=== PATIENT | male | born 1995 | race Caucasian/White ===

== ENCOUNTER 2017-08-01 12:29 | Inpatient (IN) | payer OTHER ==
[~2017-08-01] VITALS: Ht 182.9 cm; Wt 80.0 kg
[2017-08-01] MEDS ORDERED: POLYETHYLENE (MIRALAX) 17 GM PACK PO PRN (13:15)
[2017-08-01] MEDS ORDERED: ONDANSETRON INJ 2 MG/ML 2 ML VIAL IV PRN (13:15)
[2017-08-01] MEDS ORDERED: CEFTRIAXONE SOD INJ 1 GM in DEXTROSE 5% ADD-VANTAGE 50ML 50 ML IV SCH (13:15)
[2017-08-01] MEDS ORDERED: ACETAMINOPHEN 325 MG TAB PO PRN (13:15)
[2017-08-01] MEDS ORDERED: ALBUT/IPRATROP 3MG/0.5MG NEB 3 ML VIAL INH PRN (13:15)
[2017-08-01] MEDS ORDERED: ALUMINUM/MAGNESIUM/SIMETH (MAALOX MAX) 30 ML UDC PO PRN (13:15)
[2017-08-01] MEDS ORDERED: MAGNESIUM HYDROXIDE SUSP 30 ML UDC PO PRN (13:15)
[2017-08-01 15:12] VITALS: BP 146/95; PULSE 102; TEMP 37.2; O2SAT 92
[2017-08-01] MEDS ORDERED: PATIENT'S ALLERGY INFO NEEDS ENTERED SCH (15:30)
--- NOTE | 2017-08-01 15:44 | DIAGNOSTIC IMAGING REPORT ---
SINGLE VIEW CHEST CLINICAL HISTORY: Hypoxia. FINDINGS: An AP, portable, upright chest radiograph is compared to study dated 08/01/2017. Correlation is made with chest CT dated 08/01/2017. The examination is significantly degraded by portable technique and patient rotation. The cardiomediastinal silhouette is unremarkable. There is minimal patchy airspace opacity at the right lung base. No large pleural effusion or pneumothorax is seen. The bony thorax is grossly intact. IMPRESSION: There are minimal patchy airspace opacities at the right lung base. Groundglass change was seen at this site by CT. Correlate clinically for evidence of a mild infectious/inflammatory pneumonitis.. Electronically signed by: Augustin Pena M.D. 08/01/2017 3:43 PM Dictated Date/Time: 08/01/2017 3:41 PM
[2017-08-01 15:46] VITALS: Ht 182.9 cm; Wt 80.0 kg
[2017-08-01 16:00] LABS: COMPLETE YES; HEMATOCRIT 48.7 % (42-52); IG% 0.3 %; LYMPH ABS # 1.79 K/uL (1.2-3.4); MEAN CELL VOLUME 88.4 fL (80-100); MEAN CORPUSCULAR HEMOGLOBIN 31.2 pg (25-34); MEAN CORPUSCULAR HGB CONC 35.3 g/dl (32-36); MEAN PLATELET VOLUME 9.5 fL (7.4-10.4); MONO % 1.9 %; NEUT % 85.8 %; PLATELET COUNT 327 K/uL (130-400); RED BLOOD COUNT 5.51 M/uL (4.7-6.1); WHITE BLOOD COUNT 14.91 K/uL (4.8-10.8)
[2017-08-01] MEDS ORDERED: ALBUT/IPRATROP 3MG/0.5MG NEB 3 ML VIAL INH SCH (16:00)
[2017-08-01 16:02] LABS: ARTERIAL BLD GAS O2 SATURATION 85.5 % (90-95); ARTERIAL BLOOD GAS BASE EXCESS 0.4 mEq/L (-9-1.8); ARTERIAL BLOOD GAS HCO3 24 mmol/L (19-24); ARTERIAL BLOOD GAS PO2 52 mm/Hg (80-95); ARTERIAL BLOOD GAS pH 7.45 (7.35-7.45)
[2017-08-01 16:05] LABS: ALLEN TEST POS (POS); O2 ADMINISTRATION 15 L
--- NOTE | 2017-08-01 16:10 | HISTORY & PHYSICAL EXAMINATION ---
DATE OF ADMISSION: 08/01/2017 REASON FOR ADMISSION: This is a transfer for acute hypoxic respiratory failure. HISTORY OF PRESENT ILLNESS: Mr. Garcia is a 22-year-old male who has a relatively sparse past medical history only suffering from intermittent asthma. The patient states 1 week prior to presentation at [facility], he felt his asthma was worse by feeling he was short of breath, he had a cough productive of clear mucus, he had no fevers or chills. He sought care with his physician and was given prescription for nebulizers and prednisone 60 mg, he took these throughout the week, had no improvement, presented to [place] on the , was admitted to their facility, kept until today when his oxygen requirement escalated overnight. Reportedly, a CT scan as an outpatient there shows multiple ground-glass opacities, negative for pulmonary embolism, negative for aortic dissection, nonspecific in nature. The patient otherwise had a fairly unremarkable evaluation at [place], and he was transferred to our facility for pulmonary expertise. Currently, he is resting in the hospital bed. He does not appear to be in distress, although he is hypoxic with any attempted tapering his oxygen delivery. He does also become hypoxic with speaking or moving about his bed. PAST MEDICAL HISTORY: Only for the asthma. ALLERGIES: None. SOCIAL HISTORY: He does not smoke or drink. 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 FAMILY HISTORY: Positive for diabetes in his mother. No history of lung disease. No ill person exposures. No travel. The patient states he has had his flu shot. MEDICATIONS: As listed above. REVIEW OF SYSTEMS: Ten systems were reviewed and are negative unless listed above. These include no sore throat, earache, diarrhea, change in urinary habit, changes in skin, rashes, etc. PHYSICAL EXAMINATION: VITAL SIGNS: On presentation from [place], he had temperature of 36.6, respirations 20, BP 140/60, O2 sat was 90. Currently he is febrile, his heart rate is around 100, his respiration rate is 20, his sats are 80-93 depending on his level of activity. HEENT: PERRL, EOMI. Mucous membranes are moist. His oropharynx is mildly erythematous without exudates. NECK: Without lymphadenopathy. Trachea is midline. HEART: Tachycardic, regular without murmurs. LUNGS: He actually has good air. He has fair air movement in all lung hernandez. Only scant expiratory wheezes and coarse breath sounds. No focal air loss. ABDOMEN: With normoactive bowel sounds, soft, nontender, nondistended. No organomegaly. No bruits. EXTREMITIES: Without cyanosis, clubbing or edema. He has good peripheral pulses in radius and dorsalis pedis. NEUROLOGIC: He is slow to answer questions and answers in 1-word answers, but reportedly from a staff member who knows him this is his usual state. He has no focal loss of neurological function and cranial nerves II-XII are intact. LABORATORY DATA: From [facility] he has a white count of 14.9, H&H 18 and 50, platelet count 345, BUN and creatinine 14 and 1.16. Currently pending studies here include ABG, ESR, SHEILA level, 24-hour calcium, mycoplasma, legionella, and flu. Pulmonary consultation is involved. I already spoke in person with Dr. Nelson. I reviewed the chest x-ray which was done at the bedside which shows no focal infiltrates except perhaps maybe scant at the right base. ASSESSMENT: A 22-year-old male with acute respiratory failure with hypoxia with a history of asthma. PLAN: We will treat patient for his asthma with DuoNeb inhalers and intravenous Solu-Medrol. For possible infectious etiologies or atypical pneumonia, patient was given ceftriaxone and azithromycin at [facility], it will be changed to Levaquin 750 once a day here. We will check an echocardiogram for evaluation of possible septal defects or shunt pathology. We will check influenza titer. DVT prevention will be based upon enoxaparin.
[2017-08-01 16:23] LABS: CALCIUM 9.1 mg/dl (8.5-10.1); CREATININE 0.95 mg/dl (0.60-1.40); POTASSIUM 3.9 mmol/L (3.5-5.1)
[2017-08-01 16:31] LABS: ALB/GLOB RATIO 1.1 (0.9-2)
[2017-08-01] MEDS: METHYLPREDNISOLONE IV 40 MG in SYRINGE 0 ML IV SCH (16:31)
[2017-08-01] MEDS: LEVOFLOXACIN / D5W 750 MG in PREMIXED IN D5W 150 ML IV SCH (16:32)
[2017-08-01 16:40] LABS: INR 1.2 (0.9-1.1); PROTHROMBIN TIME (PATIENT) 12.9 SECONDS (9.0-12.0)
[2017-08-01 19:14] VITALS: PULSE 105; O2SAT 92
[2017-08-01 20:04] VITALS: BP 141/82; PULSE 100; TEMP 37.2; O2SAT 93
[2017-08-01] MEDS ORDERED: LEVALBUTEROL 1.25MG/0.5ML NEB INH PRN (21:15)
--- NOTE | 2017-08-01 21:15 | Pulmonary Consultation ---
History General Date of Service: Aug 01, 2017. Stated Complaint: Acute Respiratory Failure With Hypoxia HPI The patient is a 22 year old male who presents to [facility] with complaints of Acute Respiratory Failure With Hypoxia. The patient's primary care provider is Angela Howard M.D.. 22-year-old male admitted for progressive shortness of breath/asthma attack. Patient is noted a 7-10 day progression of shortness of Breath with associated cough with clear mucus but denied fever or chills. He went to his PCP and was prescribed nebulizers as well as prednisone 60 milligrams which she used had no notable improvement. [facility] was admitted for progressive shortness of breath until he became more hypoxic and was transferred secondary to refractory hypoxemia. A [facility] there is a CT angiogram performed per the records noting multiple ground-glass opacifications and negative for signs of pulmonary embolism. The patient was notably tachypneic during our conversation, required high-flow oxygen support and still desaturated into the low 90s. He was also mildly confused and had difficulty recalling relatively simple fax a was able answer person, place an appropriate time references. He denied previous history of asthma diagnosis prior to the last 2 weeks when he was initiated on nebulizers as well as prednisone. He also denies that he received any benefit from this intervention. I should note the patient also denied: Sick contacts, travel, pleurisy, night sweats, rigors, chills, unintentional weight loss, recent moves , initiating new job, no new pets or productive cough. 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 I should note that the patient describes atypical chest pain more musculoskeletal in nature which appears to be across his right and left anterior chest wall. Serum studies: WBC: 15.9 (eosinophil %: 0) Platelet count: 327 AB.45/35/52/24 on 15 liters (AA gradient: 587) Total bilirubin: 1.4 Chest x-ray 08/01/2017: Right lower lobe infiltrate Historian: patient, EMS Review of Systems Constitutional: reports: weakness Eyes: reports: no symptoms ENT: reports: no symptoms Cardiovascular: reports: no symptoms Respiratory: reports: as stated in HPI Gastrointestinal: reports: no symptoms Genitourinary - Male: reports: no symptoms Musculoskeletal: reports: as stated in HPI Integumentary: reports: no symptoms Neurologic: reports: no symptoms Psychiatric: reports: no symptoms Endocrine: no symptoms Hematologic / Lymphatic: no symptoms Allergic / Immunologic: no symptoms Past Medical History Past Medical History: asthma Past Surgical History: no surgical history Family History Parent: Diabetes Social History Tobacco: Denied a history of tobacco use Alcohol: Denied history use or abuse Occupation: [place] : Single Drugs: No history of drug use/denies history Hx Tobacco Use In Past Year?: No (second hand exposure) Smoking Status: Never Smoker Allergies Coded Allergies: No Known Allergies (Unverified , 08/01/17) Physical Physical Exam Vital Signs: Date Time Temp Pulse Resp B/P (MAP) Pulse Ox O2 Delivery O2 Flow Rate FiO2 08/01/17 20:04 37.2 100 20 141/82 (101) 93 High Flow Oxygen 08/01/17 19:14 105 16 92 Mask 15.0 08/01/17 15:12 37.2 102 26 146/95 92 Mask 15.0 General Appearance: uncomfortable, mild distress Head: NORMOCEPHALIC, ATRAUMATIC Eyes: PERRLA, NO DISCHARGE, EOMI, SCLERAE NORMAL, other ENT: NORMAL EAR EXAM, NORMAL NASAL EXAM, NORMAL MOUTH EXAM, NORMAL THROAT EXAM , NORMAL DENTAL EXAM, NORMAL SINUS EXAM, other (Dry mucous membranes) Neck: NORMAL RANGE OF MOTION, NO TENDERNESS, TRACHEA MIDLINE, NO STRIDOR Respiratory: other (Decreased breath sounds bilaterally with inspiratory and expiratory wheezing/ peak flow meter 170) Cardiovasular: REGULAR RATE/RHYTHM, NORMAL S1S2, NO M/G/R, NO MURMUR, NO GALLOP Abdomen: NON TENDER, NORMAL BOWEL SOUNDS, NO REBOUND, NO MASSES, NO GUARDING, NO ORGANOMEGALY Genitourinary - Male: EXTERNAL GENITALIA NORMAL Back: NORMAL INSPECTION, NO MIDLINE TENDERNESS, NO CVA TENDERNESS, NO PARAVERTEBRAL TTP Upper Extremities: NO EDEMA, NO DEFORMITY, NORMAL ROM Lower Extremities: NO EDEMA, NO DEFORMITY, NORMAL ROM, other (Decreased temperature via palpation on his right foot greater than left foot but proper cap refill and proper pedal pulses noted) Pulses: carotid (R) (2+), carotid (L) (2+), dorsalis pedis (R) (2+), dorsalis pedis (L) (2+), posterior tibial (R), posterior tibial (L) (2+) Neuro: NORMAL MOTOR EXAM, lethargic Reflexes: biceps (R) (2+), bicpes (L) (2+), achilles (R) (2+), achilles (L) (2+ ) Babinski Testing: right (downgoing), left (downgoing) Psychiatric: flat affect Diagnostics Labs Results Past 24 Hours Test 08/01/17 15:09 08/01/17 15:23 08/01/17 15:27 08/01/17 15:45 Range/Units White Blood Count 14.91 4.8-10.8 K/uL Red Blood Count 5.51 4.7-6.1 M/uL Hemoglobin 17.2 14.0-18.0 g/dL Hematocrit 48.7 42-52 % Mean Corpuscular Volume 88.4 80-100 fL Mean Corpuscular Hemoglobin 31.2 25-34 pg Mean Corpuscular Hemoglobin Concent 35.3 32-36 g/dl Platelet Count 327 130-400 K/uL Mean Platelet Volume 9.5 7.4-10.4 fL Neutrophils (%) (Auto) 85.8 % Lymphocytes (%) (Auto) 12.0 % Monocytes (%) (Auto) 1.9 % Eosinophils (%) (Auto) 0.0 % Basophils (%) (Auto) 0.0 % Neutrophils # (Auto) 12.79 1.4-6.5 K/uL Lymphocytes # (Auto) 1.79 1.2-3.4 K/uL Monocytes # (Auto) 0.29 0.11-0.59 K/uL Eosinophils # (Auto) 0.00 0-0.5 K/uL Basophils # (Auto) 0.00 0-0.2 K/uL RDW Standard Deviation 43.1 36.4-46.3 fL RDW Coefficient of Variation 13.3 11.5-14.5 % Immature Granulocyte % (Auto) 0.3 % Immature Granulocyte # (Auto) 0.04 0.00-0.02 K/uL Erythrocyte Sedimentation Rate 9 0-14 mm/hr Prothrombin Time 12.9 9.0-12.0 SECONDS Prothromb Time International Ratio 1.2 0.9-1.1 Arterial Blood pH 7.45 7.35-7.45 Arterial Blood Partial Pressure CO2 35 35-46 mmHg Arterial Blood Partial Pressure O2 52 80-95 mm/Hg Arterial Blood HCO3 24 19-24 mmol/L Arterial Blood Oxygen Saturation 85.5 90-95 % Arterial Blood Base Excess 0.4 -9-1.8 mEq/L Arterial Blood Gas Delivery 15 L Chandrakant Test POS POS Sodium Level 140 136-145 mmol/L Potassium Level 3.9 3.5-5.1 mmol/L Chloride Level 107 98-107 mmol/L Carbon Dioxide Level 22 21-32 mmol/L Anion Gap 11.0 3-11 mmol/L Blood Urea Nitrogen 14 7-18 mg/dl Creatinine 0.95 0.60-1.40 mg/dl Est Creatinine Clear Calc Drug Dose 136.2 ml/min Estimated GFR () 133.0 Estimated GFR (Non- 114.8 BUN/Creatinine Ratio 15.0 10-20 Random Glucose 132 70-99 mg/dl Calcium Level 9.1 8.5-10.1 mg/dl Total Bilirubin 1.4 0.2-1 mg/dl Aspartate Amino Transf (AST/SGOT) 12 15-37 U/L Alanine Aminotransferase (ALT/SGPT) 28 12-78 U/L Alkaline Phosphatase 86 45-117 U/L Total Protein 8.0 6.4-8.2 gm/dl Albumin 4.2 3.4-5.0 gm/dl Globulin 3.8 2.5-4.0 gm/dl Albumin/Globulin Ratio 1.1 0.9-2 Diagnostic Radiology Chest x-ray 08/01/2017: Right lower lobe infiltrate Impression Assessment and Plan 22-year-old male with notable shortness of breath/hypoxemia: 1. Hypoxemia: Patient is notably hypoxic currently requiring 15 liters to maintain saturations in the mid to low 50s with an Aa gradient of 587. At this time there is no definitive etiology for his hypoxemia but this is consistent with an asthma exacerbation at this time. As the patient is notably hypoxic will move him to a high-flow oxygen system maintaining his saturations between 93 and 95%. Will also switch his nebulizers to Xopenex/ipratropium q.4 hours and Q 2 p.r.n. basis. Agree with continuing his current steroid dosing. Also spoke to the patient's primary/hospitalist Dr. Nickerson and agree with initiating/switching his antibiotics to Levaquin 750 mg daily at this time for good Gram-positive and atypical coverage which we would be most consistent with community-acquired infections. As the patient is notably hypoxic which can be secondary to severe asthma exacerbation will obtain a echocardiogram/bubble study for further evaluation to rule out any possible shunt physiology. I will also give the patient 2 milligrams of intravenous magnesium infused over 20 minutes window for possible bronchodilator affect. 2. Infectious disease: As the patient is having a severe asthma exacerbation switching the patient to Levaquin is very reasonable and did discuss with Dr. Nickerson sending off for mycoplasma, Legionella, sputum and influenza evaluation. At this time the patient is mildly confused are lethargic but does not have a history suggestive of influenza will so will hold off on Tamiflu at this time. Will also be sending off for procalcitonin level at this time. 3. Abnormal chest x-ray: The patient does have a right middle lobe infiltration but is he is notably hypoxic at this time requiring high-flow oxygen will evaluate this further in the future with possible repeat chest x- ray versus high-resolution CT scan.
[2017-08-01] MEDS: MAGNESIUM SULFATE 1GM / D5W 1 GM in PREMIXED IN D5W 100 ML IV SCH ×2 (21:36→22:38)
[2017-08-01 23:26] VITALS: PULSE 109; O2SAT 89
[2017-08-01 23:29] VITALS: BP 133/78; PULSE 98; TEMP 37.1; O2SAT 95
[2017-08-02] VITALS (19 sets, daily range): BP systolic 126–133; BP diastolic 62–73; PULSE 66–108; TEMP 36.3–37.2; O2SAT 90–95
[2017-08-02] MEDS ORDERED: LEVALBUTEROL/IPRATROPIUM NEB INH SCH
[2017-08-02] MEDS: METHYLPREDNISOLONE IV 40 MG in SYRINGE 0 ML IV SCH ×3 (01:15→15:54)
[2017-08-02] MEDS: IPRATROPIUM BROMIDE NEB SOLN 0.02% 2.5 ML VIAL INH SCH ×7 (03:31→22:59)
[2017-08-02] MEDS: LEVALBUTEROL 1.25MG/0.5ML NEB INH SCH ×7 (03:31→22:59)
[2017-08-02 07:46] LABS: INFLUENZA A PCR Neg for Influ A (NEG); INFLUENZA B PCR Neg for Influ B (NEG)
[2017-08-02] MEDS: ENOXAPARIN 40 MG/0.4 ML SYR SQ SCH (07:56)
[2017-08-02] MEDS ORDERED: AZITHROMYCIN IV 500 MG in DEXTROSE 5% 250ML 250 ML IV SCH (09:00)
--- NOTE | 2017-08-02 10:16 | Hospitalist Progress Note ---
Hospitalist Progress Note Date of Service Aug 02, 2017. Subjective Pt evaluation today including: conversation w/ patient, physical exam, chart review, lab review, conversation w/ store consultant, review of inpatient medication list Pain: None reported PO Intake: Adequate with no dysphagia This is a 22 yo male that was admitted yesterday for profound hypoxia. He was initially seen at [facility] and transferred to [facility]. Dr. Nelson from the pulmonology service saw him yesterday and will continue to follow per discussion with Dixie Fan PA-C. He continues with SOB and has not been out of bed. He has no chest pain or tightness. He has no pleuritic chest pain. He has a minimal cough and states that he has no sputum production. He has no hemoptysis. He slept "ok". 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 He denies ever seeing a metallurgical engineer in the past and infrequently sees a family doctor. He has no other acute complaints Medications Current Inpatient Medications Medications (Trade) Dose Ordered Sig/Jodee Route Start Time Stop Time Status Last Admin Dose Admin Acetaminophen (Tylenol Tab) 650 mg Q4H PRN PO 08/01/17 13:15 08/31/17 13:14 Al Hydrox/Mg Hydrox/Simethicone (Maalox Max Susp) 15 ml Q4H PRN PO 08/01/17 13:15 08/31/17 13:14 Magnesium Hydroxide (Milk Of Magnesia Susp) 30 ml Q12H PRN PO 08/01/17 13:15 08/31/17 13:14 Ondansetron HCl (Zofran Inj) 4 mg Q6H PRN IV 08/01/17 13:15 08/31/17 13:14 Polyethylene (Miralax Powder Packet) 17 gm DAILY PRN PO 08/01/17 13:15 08/31/17 13:14 Methylprednisolone Sodium Succinate 40 mg/Syringe 0.64 ml @ 1.5 mls/min Q8H IV 08/01/17 16:00 08/31/17 15:59 08/02/17 07:56 1.5 MLS/MIN Levofloxacin 750 mg/Prmx 150 ml @ 100 mls/hr Q24H IV 08/01/17 17:00 08/08/17 16:59 08/01/17 16:32 100 MLS/HR Enoxaparin Sodium (Lovenox Inj) 40 mg QAM SQ 08/02/17 09:00 09/01/17 08:59 08/02/17 07:56 40 MG Levalbuterol (Xopenex 1.25MG/ 0.5ML Neb) 1.25 mg Q2R PRN INH 08/01/17 21:15 08/31/17 21:14 Ipratropium [place] (Atrovent 0.02% 0.5MG/2.5ML Neb) 0.5 mg Q4R INH 08/02/17 00:00 09/01/17 00:00 08/02/17 07:06 0.5 MG Levalbuterol (Xopenex 1.25MG/ 0.5ML Neb) 1.25 mg Q4R INH 08/02/17 00:00 09/01/17 00:00 08/02/17 07:06 1.25 MG Objective Vital Signs Date Time Temp Pulse Resp B/P (MAP) Pulse Ox O2 Delivery O2 Flow Rate FiO2 08/02/17 07:49 37.0 66 20 133/73 (93) 93 High Flow Oxygen 50.0 80 08/02/17 07:08 74 20 94 Nasal Cannula 50.0 80 08/02/17 04:09 36.9 101 22 127/65 (85) 91 High Flow Oxygen 08/02/17 04:00 93 High Flow Oxygen 45.0 60 08/02/17 03:31 73 20 94 Nasal Cannula 45.0 65 08/02/17 00:00 93 High Flow Oxygen 45.0 60 08/01/17 23:29 37.1 98 22 133/78 (96) 95 High Flow Oxygen 45.0 60 08/01/17 23:26 109 28 89 Nasal Cannula 45.0 60 08/01/17 20:04 37.2 100 20 141/82 (101) 93 High Flow Oxygen 08/01/17 20:00 High Flow Oxygen 35.0 55 Mask 08/01/17 19:14 105 16 92 Mask 15.0 08/01/17 15:12 37.2 102 26 146/95 92 Mask 15.0 Physical Exam General Appearance: no apparent distress (However, he appears ill) Eyes: normal inspection ENT: normal ENT inspection, pharynx normal Neck: supple, no adenopathy, no JVD Respiratory/Chest: chest non-tender, no respiratory distress, no accessory muscle use, + wheezing (left upper lung) Cardiovascular: regular rate, rhythm (HR 83 at the time of my examination) Abdomen: normal bowel sounds, non tender, soft Extremities: normal inspection, no pedal edema Neurologic/Psychiatric: alert, oriented x 3 Skin: normal color, warm/dry Laboratory Results Last 24 Hours Test 08/01/17 15:45 08/01/17 21:33 08/02/17 00:00 08/02/17 08:50 White Blood Count 14.91 K/uL Red Blood Count 5.51 M/uL Hemoglobin 17.2 g/dL Hematocrit 48.7 % Mean Corpuscular Volume 88.4 fL Mean Corpuscular Hemoglobin 31.2 pg Mean Corpuscular Hemoglobin Concent 35.3 g/dl Platelet Count 327 K/uL Mean Platelet Volume 9.5 fL Neutrophils (%) (Auto) 85.8 % Lymphocytes (%) (Auto) 12.0 % Monocytes (%) (Auto) 1.9 % Eosinophils (%) (Auto) 0.0 % Basophils (%) (Auto) 0.0 % Neutrophils # (Auto) 12.79 K/uL Lymphocytes # (Auto) 1.79 K/uL Monocytes # (Auto) 0.29 K/uL Eosinophils # (Auto) 0.00 K/uL Basophils # (Auto) 0.00 K/uL RDW Standard Deviation 43.1 fL RDW Coefficient of Variation 13.3 % Immature Granulocyte % (Auto) 0.3 % Immature Granulocyte # (Auto) 0.04 K/uL Erythrocyte Sedimentation Rate 9 mm/hr Prothrombin Time 12.9 SECONDS Prothromb Time International Ratio 1.2 Arterial Blood pH 7.45 Arterial Blood Partial Pressure CO2 35 mmHg Arterial Blood Partial Pressure O2 52 mm/Hg Arterial Blood HCO3 24 mmol/L Arterial Blood Oxygen Saturation 85.5 % Arterial Blood Base Excess 0.4 mEq/L Arterial Blood Gas Delivery 15 L Chandrakant Test POS Sodium Level 140 mmol/L Potassium Level 3.9 mmol/L Chloride Level 107 mmol/L Carbon Dioxide Level 22 mmol/L Anion Gap 11.0 mmol/L Blood Urea Nitrogen 14 mg/dl Creatinine 0.95 mg/dl Est Creatinine Clear Calc Drug Dose 136.2 ml/min Estimated GFR () 133.0 Estimated GFR (Non- 114.8 BUN/Creatinine Ratio 15.0 Random Glucose 132 mg/dl Calcium Level 9.1 mg/dl Total Bilirubin 1.4 mg/dl Aspartate Amino Transf (AST/SGOT) 12 U/L Alanine Aminotransferase (ALT/SGPT) 28 U/L Alkaline Phosphatase 86 U/L Total Protein 8.0 gm/dl Albumin 4.2 gm/dl Globulin 3.8 gm/dl Albumin/Globulin Ratio 1.1 Pro-B-Type Natriuretic Peptide 133 pg/ml Procalcitonin < 0.05 ng/ml Influenza Type A (RT-PCR) Neg for Influ A Influenza Type A Antigen Neg for Influ A Influenza Type B Antigen Neg for Influ B Influenza Type B (RT-PCR) Neg for Influ B Diagnostic Results 08/01/17 15:45 Red Blood Count 5.51, Mean Corpuscular Volume 88.4, Mean Corpuscular Hemoglobin 31.2, Mean Corpuscular Hemoglobin Concent 35.3, Mean Platelet Volume 9.5, Neutrophils (%) (Auto) 85.8, Lymphocytes (%) (Auto) 12.0, Monocytes (%) (Auto) 1.9, Eosinophils (%) (Auto) 0.0, Basophils (%) (Auto) 0.0, Neutrophils # (Auto) 12.79, Lymphocytes # (Auto) 1.79, Monocytes # (Auto) 0.29, Eosinophils # (Auto) 0.00, Basophils # (Auto) 0.00 08/01/17 15:45 Test 08/01/17 15:45 08/01/17 21:33 08/02/17 00:00 08/02/17 08:50 White Blood Count 14.91 K/uL (4.8-10.8) Red Blood Count 5.51 M/uL (4.7-6.1) Hemoglobin 17.2 g/dL (14.0-18.0) Hematocrit 48.7 % (42-52) Mean Corpuscular Volume 88.4 fL (80-100) Mean Corpuscular Hemoglobin 31.2 pg (25-34) Mean Corpuscular Hemoglobin Concent 35.3 g/dl (32-36) Platelet Count 327 K/uL (130-400) Mean Platelet Volume 9.5 fL (7.4-10.4) Neutrophils (%) (Auto) 85.8 % Lymphocytes (%) (Auto) 12.0 % Monocytes (%) (Auto) 1.9 % Eosinophils (%) (Auto) 0.0 % Basophils (%) (Auto) 0.0 % Neutrophils # (Auto) 12.79 K/uL (1.4-6.5) Lymphocytes # (Auto) 1.79 K/uL (1.2-3.4) Monocytes # (Auto) 0.29 K/uL (0.11-0.59) Eosinophils # (Auto) 0.00 K/uL (0-0.5) Basophils # (Auto) 0.00 K/uL (0-0.2) RDW Standard Deviation 43.1 fL (36.4-46.3) RDW Coefficient of Variation 13.3 % (11.5-14.5) Immature Granulocyte % (Auto) 0.3 % Immature Granulocyte # (Auto) 0.04 K/uL (0.00-0.02) Erythrocyte Sedimentation Rate 9 mm/hr (0-14) Prothrombin Time 12.9 SECONDS (9.0-12.0) Prothromb Time International Ratio 1.2 (0.9-1.1) Arterial Blood pH 7.45 (7.35-7.45) Arterial Blood Partial Pressure CO2 35 mmHg (35-46) Arterial Blood Partial Pressure O2 52 mm/Hg (80-95) Arterial Blood HCO3 24 mmol/L (19-24) Arterial Blood Oxygen Saturation 85.5 % (90-95) Arterial Blood Base Excess 0.4 mEq/L (-9-1.8) Arterial Blood Gas Delivery 15 L Chandrakant Test POS (POS) Anion Gap 11.0 mmol/L (3-11) Est Creatinine Clear Calc Drug Dose 136.2 ml/min Estimated GFR () 133.0 Estimated GFR (Non- 114.8 BUN/Creatinine Ratio 15.0 (10-20) Calcium Level 9.1 mg/dl (8.5-10.1) Total Bilirubin 1.4 mg/dl (0.2-1) Aspartate Amino Transf (AST/SGOT) 12 U/L (15-37) Alanine Aminotransferase (ALT/SGPT) 28 U/L (12-78) Alkaline Phosphatase 86 U/L (45-117) Total Protein 8.0 gm/dl (6.4-8.2) Albumin 4.2 gm/dl (3.4-5.0) Globulin 3.8 gm/dl (2.5-4.0) Albumin/Globulin Ratio 1.1 (0.9-2) Pro-B-Type Natriuretic Peptide 133 pg/ml (0-450) Procalcitonin < 0.05 ng/ml (0-0.5) Influenza Type A (RT-PCR) Neg for Influ A (NEG) Influenza Type A Antigen Neg for Influ A (NEG) Influenza Type B Antigen Neg for Influ B (NEG) Influenza Type B (RT-PCR) Neg for Influ B (NEG) Assessment and Plan ACUTE HYPOXIA Reported hx of asthma with no hx of PFTs Continues on [place] O2 Continue Levofloxacin Continue bronchodilators Received IV magnesium for bronchodilation Pulmonary consulted - Appreciate Dr. Nelson's input No PE per CTA at [place] CXR here with RLL ground glass opacities consistent with reactive pneumonitis vs infiltrate Discussed with pulmonary service - they will continue to follow ASTHMA Acute hypoxia as above Continue Levofloxacin and Duo nebs Continue Methylprednisolone Will need outpatient follow up and PFTs TACHYCARDIA HR low 100s this morning Has been trending in the 70s Continue on telemetry Suspect that tachycardia is self limited to acute respiratory issues DVT PROPHYLAXIS Enoxaparin Ambulate as tolerated OOB as tolerated Please refer to Dr. Hernandez' addendum for further recommendations Continued [facility] stay due to: multiple IV medications needed Discharge planning: home
--- NOTE | 2017-08-02 12:50 | ECHOCARDIOGRAM REPORT ---
*NOTICE TO RECEIVING DEMOCRAT AGENCY This information is strictly Confidential and protected under [place] law. [place] law prohibits you from making any further disclosure of this information unless further disclosure is expressly permitted by the written consent of the person to whom it pertains or is authorized by law. A general authorization for the release of medical or other information is not sufficient for this purpose. Hospital accepts no responsibility if the information is made available to any other person, INCLUDING THE PATIENT. Interpretation Summary * Name: ESTHELA MONTIEL Study Date: 08/02/2017 06:18 AM BP: 127/65 mmHg * Patient Location: C.2E\S\E207\S\1 HR: 101 * : 1995 (M/d/yyyy) Gender: Male Height: 72 in * Age: 22 yrs Ethnicity: CA Weight: 173 lb * Ordering Physician: David Nickerson * Referring Physician: UNKNOWN * Performed By: Margot Moody RCS * * Reason For Study: Eval for ASD \T\ VSD * BSA: 2.0 m2 * Normal valves. * Hyperdynamic left ventricular systolic function. * Normal estimated central venous pressure. * Normal chamber dimensions. Procedure Details * A complete two-dimensional transthoracic echocardiogram was performed (2D, M-mode, Doppler and color flow Doppler). * A saline contrast injection was performed to assess for cardiac shunting. * The injection was performed through an intravenous line in the left arm. * The attending nurse who injected the saline contrast was Eder Rowan RN. * A total of 20 cc of agitated saline was given. Left Ventricle * The left ventricle is normal in size. * There is no ventricular septal defect visualized. * There is normal left ventricular wall thickness. * Ejection Fraction = >70 %. * The left ventricle is hyperdynamic. * No regional wall motion abnormalities noted. Right Ventricle * The right ventricle is normal in size and function. Atria * The left atrial size is normal. * Right atrial size is normal. * Injection of contrast documented no interatrial shunt. Mitral Valve * The mitral valve is normal. * There is no mitral valve stenosis. * There is no mitral regurgitation noted. Tricuspid Valve * The tricuspid valve is normal. * There is no tricuspid stenosis. * No tricuspid regurgitation. Aortic Valve * The aortic valve opens well. * The aortic valve is trileaflet. * Aortic stenosis is absent. * No aortic regurgitation is present. Pulmonic Valve * The pulmonic valve is not well visualized. * The pulmonary valve is inadequately visualized, but the Doppler data is adequate for interpretation. * There is no pulmonic valvular stenosis. * There is no pulmonic valvular regurgitation. Great Vessels * The aortic root is normal size. Pericardium/Pleural * There is no pericardial effusion. Great Vessels * Normal inferior vena cava diameter and respiratory variation suggests normal central venous pressure. MMode 2D Measurements and Calculations IVSd 0.90 cm LVIDd 3.6 cm LVIDs 1.9 cm LVPWd 0.93 cm LVPWs 0.98 cm IVS/LVPW 0.97 FS 46.3 % EDV(Teich) 54.7 ml ESV(Teich) 11.7 ml EF(Teich) 78.5 % EDV(cubed) 46.9 ml ESV(cubed) 7.3 ml EF(cubed) 84.5 % % LVPW thick 5.3 % LV mass(C)d 95.2 grams LV mass(C)dI 47.5 grams/m\S\2 SV(Teich) 42.9 ml SI(Teich) 21.4 ml/m\S\2 SV(cubed) 39.6 ml SI(cubed) 19.8 ml/m\S\2 Ao root diam 3.1 cm Ao root area 7.7 cm\S\2 ACS 1.7 cm LA dimension 3.3 cm asc Aorta Diam 2.7 cm LA/Ao 1.1 Doppler Measurements and Calculations MV E max charlie 79.3 cm/sec MV A max charlie 34.7 cm/sec MV E/A 2.3 MV P1/2t max charlie 92.5 cm/sec MV P1/2t 86.5 msec MVA(P1/2t) 2.5 cm\S\2 MV dec slope 313.2 cm/sec\S\2 MV dec time 0.30 sec Ao V2 max 109.5 cm/sec Ao max PG 4.8 mmHg Ao max PG (full) 2.4 mmHg LV V1 max PG 2.4 mmHg LV V1 max 58.6 cm/sec PA V2 max 92.9 cm/sec PA max PG 3.5 mmHg
--- NOTE | 2017-08-02 15:38 | Pulmonology Progress Note ---
Pulmonary Progress Note Date of Service Aug 02, 2017. Attending Dr. Nelson Subjective 22-year-old male notes a continuous of mild dyspnea at rest and notable dyspnea with exertion. He does state this is improving over the last 24 hours. Objective Patient able to complete full sentences but is notably tachypnea using accessory muscles still during our conversation. 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 Vital signs: Stable on high flow oxygen at 50% Respiratory: Expiratory wheezes noted globally Cardiac: S1-S2 regular rate and rhythm no murmurs rubs or gallops Abdomen: Soft nontender Extremities: No clubbing cyanosis or edema Influenza a and B antigens as well as PCR assay negative Assessment & Plan 22-year-old male admitted for severe asthma exacerbation: #1 asthma exacerbation: At this time the patient has stabilized over the last 24 hours and is doing well on high flow oxygen, IV steroids and Xopenex/ Atrovent nebulizer. At this time the patient is responding and is clinically improving over the last 24 hours. We'll continue to monitor the patient limited treatment and maintain his SaO2 is between 90-95%. #2 infectious disease: Serum studies are currently pending patient continues on Levaquin 750 mg. This is day 2. Data Medications: Current Inpatient Medications Medications (Trade) Dose Ordered Sig/Jodee Route Start Time Stop Time Status Last Admin Dose Admin Acetaminophen (Tylenol Tab) 650 mg Q4H PRN PO 08/01/17 13:15 08/31/17 13:14 Al Hydrox/Mg Hydrox/Simethicone (Maalox Max Susp) 15 ml Q4H PRN PO 08/01/17 13:15 08/31/17 13:14 Magnesium Hydroxide (Milk Of Magnesia Susp) 30 ml Q12H PRN PO 08/01/17 13:15 08/31/17 13:14 Ondansetron HCl (Zofran Inj) 4 mg Q6H PRN IV 08/01/17 13:15 08/31/17 13:14 Polyethylene (Miralax Powder Packet) 17 gm DAILY PRN PO 08/01/17 13:15 08/31/17 13:14 Methylprednisolone Sodium Succinate 40 mg/Syringe 0.64 ml @ 1.5 mls/min Q8H IV 08/01/17 16:00 08/31/17 15:59 08/02/17 07:56 1.5 MLS/MIN Levofloxacin 750 mg/Prmx 150 ml @ 100 mls/hr Q24H IV 08/01/17 17:00 08/08/17 16:59 08/01/17 16:32 100 MLS/HR Enoxaparin Sodium (Lovenox Inj) 40 mg QAM SQ 08/02/17 09:00 09/01/17 08:59 08/02/17 07:56 40 MG Levalbuterol (Xopenex 1.25MG/ 0.5ML Neb) 1.25 mg Q2R PRN INH 08/01/17 21:15 08/31/17 21:14 Ipratropium [place] (Atrovent 0.02% 0.5MG/2.5ML Neb) 0.5 mg Q4R INH 08/02/17 00:00 09/01/17 00:00 08/02/17 11:05 0.5 MG Levalbuterol (Xopenex 1.25MG/ 0.5ML Neb) 1.25 mg Q4R INH 08/02/17 00:00 09/01/17 00:00 08/02/17 11:05 1.25 MG I & O: 24-Hour Column 08/03/17 07:59 Intake Total 950 ml Output Total 210 ml Balance 740 ml Vital Signs: Date Time Temp Pulse Resp B/P (MAP) Pulse Ox O2 Delivery O2 Flow Rate FiO2 08/02/17 12:00 91 High Flow Oxygen 50.0 80 08/02/17 11:20 36.6 108 20 132/62 (85) 91 High Flow Oxygen 08/02/17 11:07 74 20 91 Nasal Cannula 50.0 55 08/02/17 11:03 93 High Flow Oxygen 50.0 80 08/02/17 07:49 37.0 66 20 133/73 (93) 93 High Flow Oxygen 50.0 80 08/02/17 07:08 74 20 94 Nasal Cannula 50.0 80 08/02/17 04:09 36.9 101 22 127/65 (85) 91 High Flow Oxygen 08/02/17 04:00 93 High Flow Oxygen 45.0 60 08/02/17 03:31 73 20 94 Nasal Cannula 45.0 65 08/02/17 00:00 93 High Flow Oxygen 45.0 60 08/01/17 23:29 37.1 98 22 133/78 (96) 95 High Flow Oxygen 45.0 60 08/01/17 23:26 109 28 89 Nasal Cannula 45.0 60 08/01/17 20:04 37.2 100 20 141/82 (101) 93 High Flow Oxygen 08/01/17 20:00 High Flow Oxygen 35.0 55 Mask 08/01/17 19:14 105 16 92 Mask 15.0 Laboratory Results: Last 24 Hours Test 08/01/17 15:45 08/01/17 21:33 08/02/17 00:00 08/02/17 08:50 White Blood Count 14.91 K/uL Red Blood Count 5.51 M/uL Hemoglobin 17.2 g/dL Hematocrit 48.7 % Mean Corpuscular Volume 88.4 fL Mean Corpuscular Hemoglobin 31.2 pg Mean Corpuscular Hemoglobin Concent 35.3 g/dl Platelet Count 327 K/uL Mean Platelet Volume 9.5 fL Neutrophils (%) (Auto) 85.8 % Lymphocytes (%) (Auto) 12.0 % Monocytes (%) (Auto) 1.9 % Eosinophils (%) (Auto) 0.0 % Basophils (%) (Auto) 0.0 % Neutrophils # (Auto) 12.79 K/uL Lymphocytes # (Auto) 1.79 K/uL Monocytes # (Auto) 0.29 K/uL Eosinophils # (Auto) 0.00 K/uL Basophils # (Auto) 0.00 K/uL RDW Standard Deviation 43.1 fL RDW Coefficient of Variation 13.3 % Immature Granulocyte % (Auto) 0.3 % Immature Granulocyte # (Auto) 0.04 K/uL Erythrocyte Sedimentation Rate 9 mm/hr Prothrombin Time 12.9 SECONDS Prothromb Time International Ratio 1.2 Arterial Blood pH 7.45 Arterial Blood Partial Pressure CO2 35 mmHg Arterial Blood Partial Pressure O2 52 mm/Hg Arterial Blood HCO3 24 mmol/L Arterial Blood Oxygen Saturation 85.5 % Arterial Blood Base Excess 0.4 mEq/L Arterial Blood Gas Delivery 15 L [place] Test POS Sodium Level 140 mmol/L Potassium Level 3.9 mmol/L Chloride Level 107 mmol/L Carbon Dioxide Level 22 mmol/L Anion Gap 11.0 mmol/L Blood Urea Nitrogen 14 mg/dl Creatinine 0.95 mg/dl Est Creatinine Clear Calc Drug Dose 136.2 ml/min Estimated GFR () 133.0 Estimated GFR (Non- 114.8 BUN/Creatinine Ratio 15.0 Random Glucose 132 mg/dl Calcium Level 9.1 mg/dl Total Bilirubin 1.4 mg/dl Aspartate Amino Transf (AST/SGOT) 12 U/L Alanine Aminotransferase (ALT/SGPT) 28 U/L Alkaline Phosphatase 86 U/L Total Protein 8.0 gm/dl Albumin 4.2 gm/dl Globulin 3.8 gm/dl Albumin/Globulin Ratio 1.1 Pro-B-Type Natriuretic Peptide 133 pg/ml Procalcitonin < 0.05 ng/ml Influenza Type A (RT-PCR) Neg for Influ A Influenza Type A Antigen Neg for Influ A Influenza Type B Antigen Neg for Influ B Influenza Type B (RT-PCR) Neg for Influ B Test 08/02/17 11:15
[2017-08-02] MEDS: LEVOFLOXACIN / D5W 750 MG in PREMIXED IN D5W 150 ML IV SCH (19:13)
[2017-08-03] VITALS (14 sets, daily range): BP systolic 125–141; BP diastolic 75–91; PULSE 60–103; TEMP 36.7–37.1; O2SAT 90–95
[2017-08-03] MEDS: METHYLPREDNISOLONE IV 40 MG in SYRINGE 0 ML IV SCH ×4 (00:09→23:38)
[2017-08-03] MEDS: IPRATROPIUM BROMIDE NEB SOLN 0.02% 2.5 ML VIAL INH SCH ×6 (03:28→23:23)
[2017-08-03] MEDS: LEVALBUTEROL 1.25MG/0.5ML NEB INH SCH ×6 (03:28→23:23)
[2017-08-03] MEDS: ENOXAPARIN 40 MG/0.4 ML SYR SQ SCH (08:53)
--- NOTE | 2017-08-03 11:00 | Pulmonology Progress Note ---
Pulmonary Progress Note Date of Service Aug 03, 2017. Attending Dr. Nelson Subjective Patient states that he is feeling slightly better. He states that his breathing is "good" this morning, and that the high flow O2 is OK. He has no other real complaints and states that his appetite is good. Meds reviewed: Atrovent, Xopenex, Levofloxacin, Methylprednisolone 40 mg Q8h Echo: hyperdynamic left ventricular systolic function, normal valves, EF >70% Labs reviewed: Procalcitonin <0.05 BNP 133 SHEILA pending Previous CTA viewed and reviewed this morning with Dr. Nelson. Note a mosaic pattern to B/L lungs with R>L. Objective VS reviewed. Patient continues on high flow O2 at a rate of 50 with FiO2 of 70 this morning. SaO2 this morning has been 91-95%. RR up to 26 over night. HR 60- 73, BP 139/77 Patient answers questions with short answers and does not make any extensive conversation. General: Patient is awake, alert, and in no acute distress. Well developed. Well-nourished. Head: Normocephalic, Atraumatic. ENT: PERRLA, No discharge, EOMI, Sclera normal Neck: Normal ROM. Trachea midline. No stridor Respiratory: High flow O2 in place. Tachypnea on exam. Inspiratory and expiratory wheezing noted on exam, especially on right. No accessory muscle use. Cardiovascular: Regular rate and rhythm. No murmur appreciate. Normal S1/S2. Abdomen: Nontender to palpation. Normal bowel sounds hear throughout. No guarding. Abdomen is soft and nontender Back: Normal inspection. Extremities: No edema, cyanosis. Neuro: Alert. CN II-XII grossly intact. Sensation and motor function grossly intact. Psych: Mood and affect are flat Assessment & Plan Severe asthma exacerbation Possible lower respiratory tract infection Patient is currently stable but still requiring high O2 supplementation. Continue O2 supplementation pending further improvement. Continue to taper O2 as tolerated. Keep SaO2 between 90-95% ideally. Patient continues to have tachypnea and wheezing. Continue nebulized Xopenex, Atrovent, and Solu-Medrol. will hopefully be able to start tapering steroids tomorrow pending further improvement. Continues to have flat affect and because of mosaic pattern on prior CTA- will check toxicology screen. Serum studies pending for infection. Will continue Levaquin pending serum studies, but likely will be able to discontinue in next 1-2 days. Will follow. Patient was seen and examined and the plan of of his agreed upon. As well as CT was reviewed from outside facility. Data Medications: Current Inpatient Medications Medications (Trade) Dose Ordered Sig/Jodee Route Start Time Stop Time Status Last Admin Dose Admin Acetaminophen (Tylenol Tab) 650 mg Q4H PRN PO 08/01/17 13:15 08/31/17 13:14 Al Hydrox/Mg Hydrox/Simethicone (Maalox Max Susp) 15 ml Q4H PRN PO 08/01/17 13:15 08/31/17 13:14 Magnesium Hydroxide (Milk Of Magnesia Susp) 30 ml Q12H PRN PO 08/01/17 13:15 08/31/17 13:14 Ondansetron HCl (Zofran Inj) 4 mg Q6H PRN IV 08/01/17 13:15 08/31/17 13:14 Polyethylene (Miralax Powder Packet) 17 gm DAILY PRN PO 08/01/17 13:15 08/31/17 13:14 Methylprednisolone Sodium Succinate 40 mg/Syringe 0.64 ml @ 1.5 mls/min Q8H IV 08/01/17 16:00 08/31/17 15:59 08/03/17 08:53 1.5 MLS/MIN Levofloxacin 750 mg/Prmx 150 ml @ 100 mls/hr Q24H IV 08/01/17 17:00 08/08/17 16:59 08/02/17 19:13 100 MLS/HR Enoxaparin Sodium (Lovenox Inj) 40 mg QAM SQ 08/02/17 09:00 09/01/17 08:59 08/02/17 07:56 40 MG Levalbuterol (Xopenex 1.25MG/ 0.5ML Neb) 1.25 mg Q2R PRN INH 08/01/17 21:15 08/31/17 21:14 Ipratropium [place] (Atrovent 0.02% 0.5MG/2.5ML Neb) 0.5 mg Q4R INH 08/02/17 00:00 09/01/17 00:00 08/03/17 07:16 0.5 MG Levalbuterol (Xopenex 1.25MG/ 0.5ML Neb) 1.25 mg Q4R INH 08/02/17 00:00 09/01/17 00:00 08/03/17 07:16 1.25 MG Vital Signs: Date Time Temp Pulse Resp B/P (MAP) Pulse Ox O2 Delivery O2 Flow Rate FiO2 08/03/17 08:36 91 High Flow Oxygen 50.0 08/03/17 07:57 36.9 73 22 139/77 (97) 94 High Flow Oxygen 08/03/17 07:16 60 16 93 Nasal Cannula 50.0 70 08/03/17 04:00 High Flow Oxygen 08/03/17 03:28 73 20 93 Nasal Cannula 50.0 70 08/03/17 03:25 37.1 72 26 137/91 (106) 95 High Flow Oxygen 08/03/17 01:12 93 High Flow Oxygen 50.0 65 08/02/17 23:59 High Flow Oxygen 08/02/17 23:25 36.3 91 22 129/67 (87) 95 High Flow Oxygen 50.0 55 08/02/17 22:59 105 22 92 Nasal Cannula 50.0 55 08/02/17 20:00 High Flow Oxygen 08/02/17 19:28 37.1 92 24 130/69 (89) 94 High Flow Oxygen 08/02/17 19:04 87 22 93 Nasal Cannula 50.0 55 08/02/17 16:17 97 19 126/71 (89) 90 High Flow Oxygen 15.0 08/02/17 16:15 91 High Flow Oxygen 50.0 80 08/02/17 15:54 92 22 91 Nasal Cannula 50.0 55 08/02/17 15:43 92 High Flow Oxygen 15.0 08/02/17 15:38 37.2 90 18 126/71 (89) 92 High Flow Oxygen 08/02/17 12:00 91 High Flow Oxygen 50.0 80 08/02/17 11:20 36.6 108 20 132/62 (85) 91 High Flow Oxygen 08/02/17 11:07 74 20 91 Nasal Cannula 50.0 55 08/02/17 11:03 93 High Flow Oxygen 50.0 80 Laboratory Results: Last 24 Hours Test 08/02/17 11:15 08/02/17 20:50 08/03/17 10:50
--- NOTE | 2017-08-03 12:06 | DIAGNOSTIC IMAGING REPORT ---
(CHEST) THORAX WITHOUT CT DOSE: 340.97 mGy.cm CLINICAL HISTORY: 22 years-old Male with Hypoxia, asthma exacerbation. Acute hypoxia TECHNIQUE: Multiaxial CT images of the chest were performed without contrast. A dose lowering technique was utilized adhering to the principles of ALARA. COMPARISON: Chest radiograph 08/01/2017, CTA chest 08/01/2017 FINDINGS: Thyroid is homogeneous. No pathologic adenopathy. Heart appears normal in size without pericardial effusion. Thoracic aorta is normal in both course and caliber. Minimal residual thymic tissue. No pleural effusion or pneumothorax. There are linear subsegmental consolidative opacities of the lung bases as well as the upper lobes compatible with atelectasis. Minimal mosaic attenuation bilaterally, notably within the upper lung zones there is a groundglass opacities are again seen. Focal groundglass opacity of the lateral segment right middle lobe has decreased from prior study 08/01/2017 seen on image 188 of series 4. There is mild bilateral bronchial wall thickening with associated secretions as seen on image 143 series 4. Secretions are also seen within the mid trachea. No lobar airspace consolidation to suggest pneumonia. No acute amount of the imaged upper abdomen. Soft tissues are unremarkable. Bones appear intact. Minimal Schmorl's nodes are seen at several levels throughout the thoracic spine. IMPRESSION: 1. Mild bilateral bilateral bronchial wall thickening with minimal airway secretions, scattered subsegmental mosaic attenuation and groundglass opacities suggests bronchial inflammatory changes with air trapping. Pattern of disease is slightly improved from comparison 08/01/2017. 2. No lobar airspace consolidation to suggest pneumonia. Electronically signed by: Jimbo Byrd M.D. 08/03/2017 12:05 PM Dictated Date/Time: 08/03/2017 11:58 AM
--- NOTE | 2017-08-03 13:47 | Progress Note ---
Subjective Date of Service: Aug 03, 2017. Subjective Pt evaluation today including: conversation w/ patient, physical exam, lab review, review of studies, conversation w/ internal audit consultant, review of inpatient medication list Pain: no pain PO Intake: adeqaute Voiding: no voiding problems patient says he feels slightly better today, breathing more comfortably, no distress reviewed results of CT chest discussed case with Dr. Nelson, continue to treat asthma Review of Systems Respiratory: + cough, + sputum, + wheezing, + shortness of breath, + dyspnea on exertion All Other Systems: Reviewed and Negative Medications Current Inpatient Medications Medications (Trade) Dose Ordered Sig/Jodee Route Start Time Stop Time Status Last Admin Dose Admin Acetaminophen (Tylenol Tab) 650 mg Q4H PRN PO 08/01/17 13:15 08/31/17 13:14 Al Hydrox/Mg Hydrox/Simethicone (Maalox Max Susp) 15 ml Q4H PRN PO 08/01/17 13:15 08/31/17 13:14 Magnesium Hydroxide (Milk Of Magnesia Susp) 30 ml Q12H PRN PO 08/01/17 13:15 08/31/17 13:14 Ondansetron HCl (Zofran Inj) 4 mg Q6H PRN IV 08/01/17 13:15 08/31/17 13:14 Polyethylene (Miralax Powder Packet) 17 gm DAILY PRN PO 08/01/17 13:15 08/31/17 13:14 Methylprednisolone Sodium Succinate 40 mg/Syringe 0.64 ml @ 1.5 mls/min Q8H IV 08/01/17 16:00 08/31/17 15:59 08/03/17 08:53 1.5 MLS/MIN Levofloxacin 750 mg/Prmx 150 ml @ 100 mls/hr Q24H IV 08/01/17 17:00 08/08/17 16:59 08/02/17 19:13 100 MLS/HR Enoxaparin Sodium (Lovenox Inj) 40 mg QAM SQ 08/02/17 09:00 09/01/17 08:59 08/02/17 07:56 40 MG Levalbuterol (Xopenex 1.25MG/ 0.5ML Neb) 1.25 mg Q2R PRN INH 08/01/17 21:15 11/15/17 21:14 Ipratropium [place] (Atrovent 0.02% 0.5MG/2.5ML Neb) 0.5 mg Q4R INH 08/02/17 00:00 09/01/17 00:00 08/03/17 11:22 0.5 MG Levalbuterol (Xopenex 1.25MG/ 0.5ML Neb) 1.25 mg Q4R INH 08/02/17 00:00 09/01/17 00:00 08/03/17 11:23 1.25 MG Objective Vital Signs Date Time Temp Pulse Resp B/P (MAP) Pulse Ox O2 Delivery O2 Flow Rate FiO2 08/03/17 11:23 69 16 90 Nasal Cannula 50.0 70 08/03/17 10:55 37.1 68 28 125/75 (92) 90 Non-Rebreather 14.0 08/03/17 08:36 91 High Flow Oxygen 50.0 08/03/17 07:57 36.9 73 22 139/77 (97) 94 High Flow Oxygen 08/03/17 07:16 60 16 93 Nasal Cannula 50.0 70 08/03/17 04:00 High Flow Oxygen 08/03/17 03:28 73 20 93 Nasal Cannula 50.0 70 08/03/17 03:25 37.1 72 26 137/91 (106) 95 High Flow Oxygen 08/03/17 01:12 93 High Flow Oxygen 50.0 65 08/02/17 23:59 High Flow Oxygen 08/02/17 23:25 36.3 91 22 129/67 (87) 95 High Flow Oxygen 50.0 55 08/02/17 22:59 105 22 92 Nasal Cannula 50.0 55 08/02/17 20:00 High Flow Oxygen 08/02/17 19:28 37.1 92 24 130/69 (89) 94 High Flow Oxygen 08/02/17 19:04 87 22 93 Nasal Cannula 50.0 55 08/02/17 16:17 97 19 126/71 (89) 90 High Flow Oxygen 15.0 08/02/17 16:15 91 High Flow Oxygen 50.0 80 08/02/17 15:54 92 22 91 Nasal Cannula 50.0 55 08/02/17 15:43 92 High Flow Oxygen 15.0 08/02/17 15:38 37.2 90 18 126/71 (89) 92 High Flow Oxygen Physical Exam General Appearance: WD/WN, no apparent distress Eyes: normal inspection, EOMI, sclerae normal ENT: normal ENT inspection, hearing grossly normal, pharynx normal Neck: supple, no adenopathy, no JVD, trachea midline Respiratory/Chest: chest non-tender, no respiratory distress, no accessory muscle use, + wheezing Cardiovascular: no edema, no gallop, no JVD, no murmur, + tachycardia Abdomen: normal bowel sounds, non tender, soft, no organomegaly Extremities: normal range of motion, non-tender, normal inspection, no pedal edema, no calf tenderness Neurologic/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 Mild bilateral bilateral bronchial wall thickening with minimal airway secretions, scattered subsegmental mosaic attenuation and groundglass opacities suggests bronchial inflammatory changes with air trapping. Pattern of disease is slightly improved from comparison 08/01/2017. 2. No lobar airspace consolidation to suggest pneumonia. Last 24 Hours Test 08/02/17 20:50 08/03/17 10:50 08/03/17 12:00 Assessment and Plan 22 yo male with acute asthma exacerbation, hypoxia - Acute hypoxic respiratory failure secondary to acute asthma exacerbation mild improvement today, no accessory muscle use, no distress still requiring 70% FiO2 still with wheezing treat with Solu Medrol, nebulizers, Levaquin - Tachycardia: intermittent, due to stress and nebulizers remain on telemetry due to high flow oxygen requirement Continued [facility] stay due to: multiple IV medications needed Discharge planning: home
[2017-08-03 14:15] LABS: CALCIUM URINE 10.9 mg/dl
[2017-08-03] MEDS: LEVOFLOXACIN / D5W 750 MG in PREMIXED IN D5W 150 ML IV SCH (17:26)
[2017-08-04] VITALS (14 sets, daily range): BP systolic 134–152; BP diastolic 67–96; PULSE 73–113; TEMP 36.7–37; O2SAT 92–96
[2017-08-04] MEDS: LEVALBUTEROL 1.25MG/0.5ML NEB INH SCH ×6 (03:38→23:00)
[2017-08-04] MEDS: IPRATROPIUM BROMIDE NEB SOLN 0.02% 2.5 ML VIAL INH SCH ×6 (03:38→23:00)
[2017-08-04 05:22] LABS: MEAN CELL VOLUME 89.9 fL (80-100); MEAN CORPUSCULAR HEMOGLOBIN 31.8 pg (25-34); MEAN CORPUSCULAR HGB CONC 35.4 g/dl (32-36); MEAN PLATELET VOLUME 9.1 fL (7.4-10.4); PLATELET COUNT 332 K/uL (130-400); RED BLOOD COUNT 5.34 M/uL (4.7-6.1); WHITE BLOOD COUNT 16.34 K/uL (4.8-10.8)
[2017-08-04 05:50] LABS: CREATININE 1.05 mg/dl (0.60-1.40)
[2017-08-04] MEDS: METHYLPREDNISOLONE IV 40 MG in SYRINGE 0 ML IV SCH ×3 (08:33→23:13)
[2017-08-04] MEDS: ENOXAPARIN 40 MG/0.4 ML SYR SQ SCH (08:34)
--- NOTE | 2017-08-04 09:33 | Pharmacy Progress Note ---
Automatic IV to PO Conversion Date of Service: Aug 04, 2017. [facility] has identified patient as an appropriate candidate for automatic intravenous to oral conversion. Eligible medication: LVQ 750mg IV every 24 hours. Day # 3 of IV therapy. Subjective The patient is a 22 year old male admitted on Aug 01, 2017 at 13:17 for Acute Respiratory Failure With Hypoxia. Objective Vital Signs: Vital Signs Past 12 Hours Date Time Temp Pulse Resp B/P (MAP) Pulse Ox O2 Delivery O2 Flow Rate FiO2 08/04/17 07:14 79 18 94 Nasal Cannula 50.0 60 08/04/17 04:00 High Flow Oxygen 50.0 65 08/04/17 03:39 113 18 96 Nasal Cannula 50.0 65 08/04/17 03:38 36.9 78 24 152/77 (102) 94 High Flow Oxygen 50.0 65 08/03/17 23:59 High Flow Oxygen 50.0 65 08/03/17 23:29 37.0 85 21 131/82 (98) 94 High Flow Oxygen 50.0 65 08/03/17 23:24 80 18 93 Nasal Cannula 50.0 65 White Blood Count: Test 08/04/17 04:57 White Blood Count 16.34 K/uL (4.8-10.8) Height (Feet): 6 Height (Inches): 0.00 Weight (Kilograms): 78.300 Type of Diet: Regular Assessment & Plan The Infectious Disease Society and the [place] [employer] recommend conversion to oral therapy once a patient is determined to be clinically stable and are able to tolerate oral medications. Patient identified as appropriate candidate for IV to PO conversion of LVQ 750mg QD based on the following criteria: * Afebrile for greater than or equal to 12 hours * Receiving oral/enteral medications and tolerating oral/enteral diet for greater than 24 hours * Improvement in clinical condition evidenced by resolution of signs/symptoms of illness * Hemodynamically stable Automatic conversion to: LVQ 750mg PO every 24 hours
--- NOTE | 2017-08-04 09:54 | Hospitalist Progress Note ---
Hospitalist Progress Note Date of Service Aug 04, 2017. Subjective Pt evaluation today including: conversation w/ patient, physical exam, chart review, lab review, review of studies, review of inpatient medication list Voiding: no voiding problems Mr. Garcia reports feeling that he is breathing better at this point. He has no other complaints Constitutional: No fever, No chills Respiratory: + cough, + sputum (clear), + shortness of breath Cardiovascular: No chest pain, No orthopnea Abdomen: No pain, No nausea, No vomiting, No diarrhea Male : No dysuria All Other Systems: Reviewed and Negative Medications Medications Administered Medications (Trade) Dose Ordered Sig/Jodee Route Start Time Stop Time Status Last Admin Dose Admin Methylprednisolone Sodium Succinate 40 mg/Syringe 0.64 ml @ 1.5 mls/min Q8H IV 08/01/17 16:00 08/31/17 15:59 08/04/17 08:33 1.5 MLS/MIN Albuterol/ Ipratropium (Duoneb) 3 ml QIDR INH 08/01/17 16:00 08/01/17 21:19 DC 08/01/17 19:13 3 ML Levofloxacin 750 mg/Prmx 150 ml @ 100 mls/hr Q24H IV 08/01/17 17:00 08/04/17 09:15 DC 08/03/17 17:26 100 MLS/HR Enoxaparin Sodium (Lovenox Inj) 40 mg QAM SQ 08/02/17 09:00 09/01/17 08:59 08/04/17 08:34 40 MG Magnesium Sulfate 1 gm/Prmx 100 ml @ 100 mls/hr Q1H IV 08/01/17 21:15 08/01/17 23:14 DC 08/01/17 22:38 100 MLS/HR Ipratropium [place] (Atrovent 0.02% 0.5MG/2.5ML Neb) 0.5 mg Q4R INH 08/02/17 00:00 09/01/17 00:00 08/04/17 07:14 0.5 MG Levalbuterol (Xopenex 1.25MG/ 0.5ML Neb) 1.25 mg Q4R INH 08/02/17 00:00 09/01/17 00:00 08/04/17 07:14 1.25 MG Objective Vital Signs Date Time Temp Pulse Resp B/P (MAP) Pulse Ox O2 Delivery O2 Flow Rate FiO2 08/04/17 07:14 79 18 94 Nasal Cannula 50.0 60 08/04/17 04:00 High Flow Oxygen 50.0 65 08/04/17 03:39 113 18 96 Nasal Cannula 50.0 65 08/04/17 03:38 36.9 78 24 152/77 (102) 94 High Flow Oxygen 50.0 65 08/03/17 23:59 High Flow Oxygen 50.0 65 08/03/17 23:29 37.0 85 21 131/82 (98) 94 High Flow Oxygen 50.0 65 08/03/17 23:24 80 18 93 Nasal Cannula 50.0 65 08/03/17 20:00 High Flow Oxygen 08/03/17 19:19 36.7 103 26 141/91 (108) 95 High Flow Oxygen 08/03/17 18:47 77 18 90 Nasal Cannula 6.0 08/03/17 16:00 High Flow Oxygen 08/03/17 15:41 37.1 85 16 126/75 (92) 94 High Flow Oxygen 08/03/17 15:31 66 16 95 Nasal Cannula 50.0 70 08/03/17 12:00 High Flow Oxygen 08/03/17 11:23 69 16 90 Nasal Cannula 50.0 70 08/03/17 10:55 37.1 68 28 125/75 (92) 90 Non-Rebreather 14.0 Physical Exam Notes: General: no distress Eyes: normal inspection, PERLL Respiratory: chest non tender, diminished with expiratory wheezes throughout left lung field and at apex of right, tachypneic with sharp inhale and then longer exhale, no respiratory distress, no accessory muscle use Cardiac: regular rate and rhythm, no rub or gallop, no murmur, no edema, no jvd GI/: active bowel sounds, no abd pain or tenderness, soft, non distended Extremities: normal range of motion, normal strength, non tender Neuro/Psych: alert and oriented x 3, normal mood and affect Skin: normal color, dry Laboratory Results Last 24 Hours Test 08/03/17 12:00 08/03/17 23:20 08/04/17 04:57 Urine Collection Time 24 HOURS Urine Total Volume 2300 mL Urine Calcium mg% 10.9 mg/dl Urine Calcium 24 Hour 250.7 mg/24 HR White Blood Count 16.34 K/uL Red Blood Count 5.34 M/uL Hemoglobin 17.0 g/dL Hematocrit 48.0 % Mean Corpuscular Volume 89.9 fL Mean Corpuscular Hemoglobin 31.8 pg Mean Corpuscular Hemoglobin Concent 35.4 g/dl RDW Standard Deviation 43.2 fL RDW Coefficient of Variation 13.2 % Platelet Count 332 K/uL Mean Platelet Volume 9.1 fL Creatinine 1.05 mg/dl Est Creatinine Clear Calc Drug Dose 123.2 ml/min Estimated GFR () 117.9 Estimated GFR (Non- 101.7 Assessment and Plan 22 yo male with acute asthma exacerbation, hypoxia - Acute hypoxic respiratory failure secondary to acute asthma exacerbation mild improvement today, no accessory muscle use, no distress, uneasy respiratory pattern with sharp intake and long exhale still requiring 65% FiO2 still with wheezing, diminished air movement to ausculation treat with Solu Medrol, nebulizers, Levaquin Appreciate input from pulmonary - Tachycardia: intermittent, due to stress and nebulizers remain on telemetry due to high flow oxygen requirement Resuscitation full code DVT prophylaxis - enoxaparin
[2017-08-04] MEDS ORDERED: LEVOFLOXACIN 750 MG TAB PO SCH (11:00)
--- NOTE | 2017-08-04 11:51 | Pulmonology Progress Note ---
Pulmonary Progress Note Date of Service Aug 04, 2017. Attending Dr. Fountain Subjective Patient states that he is feeling better. His breathing is better. He continues on high flow O2. I discussed this patient briefly with Dr. Hernandez. No new imaging. He continues on Levaquin day 4, Xopenex, Atrovent, and Methylprednisolone 40 mg Q8h. Labs reviewed: WBC 16.34 Hgb 17.0 Creatinine 1.05 Mycoplasma and Legionella pending Objective VS reviewed: RR 18-28 BP 134/70 SaO2 94-95% on high flow this morning at rate of 50 with FiO2 of 65 HR 80 General: Patient is awake, alert, and in no acute distress. Well developed. Well-nourished. Head: Normocephalic, Atraumatic. ENT: PERRLA, No discharge, EOMI, Sclera normal Neck: Normal ROM. Trachea midline. No stridor Respiratory: High flow O2 in place. Expiratory wheezing noted on exam, especially on right. Improved from yesterday. No accessory muscle use. Cardiovascular: Regular rate and rhythm. No murmur appreciate. Normal S1/S2. Abdomen: Normal bowel sounds hear throughout. No guarding. Abdomen is soft and nontender Extremities: No edema, cyanosis. Neuro: Alert. CN II-XII grossly intact. Sensation and motor function grossly intact. Psych: Mood and affect are flat Assessment & Plan Severe asthma exacerbation Possible lower respiratory tract infection Patient is currently stable but still requiring high O2 supplementation. Continue O2 supplementation pending further improvement. Will attempt to further titrate O2 supplementation today. Hopefully can begin decreasing O2 supplementation, but continues to monitor and keep SaO2 between 90-95%. Continue current dose of systemic steroid and Levaquin. Will D/C Levaquin after tomorrow (day 5). Patient likely will need a very long, slow tapering course of PO prednisone once IV steroids can begin to be tapered off. Wait to taper pending decreased O2 needs. Tox screen pending. He will need pulmonary function studies after improvement as outpatient as well. Will also add daily Peak Flow. We will follow. Data Medications: Current Inpatient Medications Medications (Trade) Dose Ordered Sig/Jodee Route Start Time Stop Time Status Last Admin Dose Admin Acetaminophen (Tylenol Tab) 650 mg Q4H PRN PO 08/01/17 13:15 08/31/17 13:14 Al Hydrox/Mg Hydrox/Simethicone (Maalox Max Susp) 15 ml Q4H PRN PO 08/01/17 13:15 08/31/17 13:14 Magnesium Hydroxide (Milk Of Magnesia Susp) 30 ml Q12H PRN PO 08/01/17 13:15 08/31/17 13:14 Ondansetron HCl (Zofran Inj) 4 mg Q6H PRN IV 08/01/17 13:15 08/31/17 13:14 Polyethylene (Miralax Powder Packet) 17 gm DAILY PRN PO 08/01/17 13:15 08/31/17 13:14 Methylprednisolone Sodium Succinate 40 mg/Syringe 0.64 ml @ 1.5 mls/min Q8H IV 08/01/17 16:00 08/31/17 15:59 08/04/17 08:33 1.5 MLS/MIN Enoxaparin Sodium (Lovenox Inj) 40 mg QAM SQ 08/02/17 09:00 09/01/17 08:59 08/04/17 08:34 40 MG Levalbuterol (Xopenex 1.25MG/ 0.5ML Neb) 1.25 mg Q2R PRN INH 08/01/17 21:15 08/31/17 21:14 Ipratropium [place] (Atrovent 0.02% 0.5MG/2.5ML Neb) 0.5 mg Q4R INH 08/02/17 00:00 09/01/17 00:00 08/04/17 11:22 0.5 MG Levalbuterol (Xopenex 1.25MG/ 0.5ML Neb) 1.25 mg Q4R INH 08/02/17 00:00 09/01/17 00:00 08/04/17 11:22 1.25 MG Levofloxacin (Levaquin Tab) 750 mg DAILY@11 PO 08/04/17 11:00 08/05/17 10:59 Vital Signs: Date Time Temp Pulse Resp B/P (MAP) Pulse Ox O2 Delivery O2 Flow Rate FiO2 08/04/17 11:22 73 18 95 Nasal Cannula 50.0 48 08/04/17 08:00 95 High Flow Oxygen 50.0 65 08/04/17 08:00 36.7 80 28 134/70 (91) 94 High Flow Oxygen 50.0 65 08/04/17 07:14 79 18 94 Nasal Cannula 50.0 60 08/04/17 04:00 High Flow Oxygen 50.0 65 08/04/17 03:39 113 18 96 Nasal Cannula 50.0 65 08/04/17 03:38 36.9 78 24 152/77 (102) 94 High Flow Oxygen 50.0 65 08/03/17 23:59 High Flow Oxygen 50.0 65 08/03/17 23:29 37.0 85 21 131/82 (98) 94 High Flow Oxygen 50.0 65 08/03/17 23:24 80 18 93 Nasal Cannula 50.0 65 08/03/17 20:00 High Flow Oxygen 08/03/17 19:19 36.7 103 26 141/91 (108) 95 High Flow Oxygen 08/03/17 18:47 77 18 90 Nasal Cannula 6.0 08/03/17 16:00 High Flow Oxygen 08/03/17 15:41 37.1 85 16 126/75 (92) 94 High Flow Oxygen 08/03/17 15:31 66 16 95 Nasal Cannula 50.0 70 08/03/17 12:00 High Flow Oxygen Laboratory Results: Last 24 Hours Test 08/03/17 12:00 08/03/17 23:20 08/04/17 04:57 Urine Collection Time 24 HOURS Urine Total Volume 2300 mL Urine Calcium mg% 10.9 mg/dl Urine Calcium 24 Hour 250.7 mg/24 HR White Blood Count 16.34 K/uL Red Blood Count 5.34 M/uL Hemoglobin 17.0 g/dL Hematocrit 48.0 % Mean Corpuscular Volume 89.9 fL Mean Corpuscular Hemoglobin 31.8 pg Mean Corpuscular Hemoglobin Concent 35.4 g/dl RDW Standard Deviation 43.2 fL RDW Coefficient of Variation 13.2 % Platelet Count 332 K/uL Mean Platelet Volume 9.1 fL Creatinine 1.05 mg/dl Est Creatinine Clear Calc Drug Dose 123.2 ml/min Estimated GFR () 117.9 Estimated GFR (Non- 101.7
[2017-08-04 14:17] LABS: LEGIONELLA ANTIGEN NOT DETECTED (NOT DETECTED)
[2017-08-05] VITALS (15 sets, daily range): BP systolic 126–153; BP diastolic 68–94; PULSE 63–104; TEMP 36.6–37; O2SAT 40–99
[2017-08-05] MEDS: IPRATROPIUM BROMIDE NEB SOLN 0.02% 2.5 ML VIAL INH SCH ×6 (04:05→23:16)
[2017-08-05] MEDS: LEVALBUTEROL 1.25MG/0.5ML NEB INH SCH ×6 (04:05→23:16)
[2017-08-05] MEDS: ENOXAPARIN 40 MG/0.4 ML SYR SQ SCH (07:44)
[2017-08-05] MEDS: METHYLPREDNISOLONE IV 40 MG in SYRINGE 0 ML IV SCH ×2 (07:44→21:56)
--- NOTE | 2017-08-05 09:40 | Pulmonology Progress Note ---
Pulmonary Progress Note Date of Service Aug 05, 2017. Attending Dr. iLang Subjective Patient states that he is stable today. No real improvement or worsening. Continues to sit in bed. His nurse, Ethel states that he has not been out of bed much at all. He has no real complaints this morning but continues on high flow O2 currently at a rate of 50 with FiO2 of 50. Labs reviewed: Legionella Urinary Ag not detected. No new imaging. ROS otherwise reviewed and negative. Objective VS reviewed: Afebrile HR 63 RR 20 BP 153/81 SaO2 94-95% on high flow O2 at rate of 50 and FiO2 of 50 General: Patient is awake, alert, and in no acute distress. Well developed. Well-nourished. Head: Normocephalic, Atraumatic. ENT: PERRLA, No discharge, EOMI, Sclera normal Neck: Normal ROM. Trachea midline. No stridor Respiratory: High flow O2 in place. Very mild wheeze noted in upper lungs b/l. Improved from yesterday. Cardiovascular: Regular rate and rhythm. No murmur appreciate. Normal S1/S2. Abdomen: Normal bowel sounds hear throughout. No guarding. Abdomen is soft and nontender Extremities: No edema, cyanosis. Neuro: Alert. CN II-XII grossly intact. Sensation and motor function grossly intact. Psych: Mood and affect are flat Assessment & Plan Severe asthma exacerbation Possible lower respiratory tract infection Patient is currently stable but still requiring high O2 supplementation. Continue O2 supplementation pending further improvement, but continue to attempt titration of FiO2 and rate. Hopefully can begin decreasing O2 supplementation, but continues to monitor and keep SaO2 between 90-95%. Patient has completed 5 days of Levaquin, therefore will discontinue. Lungs sound improved this morning, so will also decreased systemic steroids and begin tapering. I discussed this patient with Dr. Hernandez. Recommended getting PT/OT involved with this patient to get him out of bed and moving a little bit more to help his lung function. He will need pulmonary function studies after improvement as outpatient as well. Continue daily peak flow. Data Medications: Current Inpatient Medications Medications (Trade) Dose Ordered Sig/Jodee Route Start Time Stop Time Status Last Admin Dose Admin Acetaminophen (Tylenol Tab) 650 mg Q4H PRN PO 08/01/17 13:15 08/31/17 13:14 Al Hydrox/Mg Hydrox/Simethicone (Maalox Max Susp) 15 ml Q4H PRN PO 08/01/17 13:15 08/31/17 13:14 Magnesium Hydroxide (Milk Of Magnesia Susp) 30 ml Q12H PRN PO 08/01/17 13:15 08/31/17 13:14 Ondansetron HCl (Zofran Inj) 4 mg Q6H PRN IV 08/01/17 13:15 08/31/17 13:14 Polyethylene (Miralax Powder Packet) 17 gm DAILY PRN PO 08/01/17 13:15 08/31/17 13:14 Methylprednisolone Sodium Succinate 40 mg/Syringe 0.64 ml @ 1.5 mls/min Q8H IV 08/01/17 16:00 08/31/17 15:59 08/05/17 07:44 1.5 MLS/MIN Enoxaparin Sodium (Lovenox Inj) 40 mg QAM SQ 08/02/17 09:00 09/01/17 08:59 08/04/17 08:34 40 MG Levalbuterol (Xopenex 1.25MG/ 0.5ML Neb) 1.25 mg Q2R PRN INH 08/01/17 21:15 08/31/17 21:14 Ipratropium [place] (Atrovent 0.02% 0.5MG/2.5ML Neb) 0.5 mg Q4R INH 08/02/17 00:00 09/01/17 00:00 08/05/17 07:06 0.5 MG Levalbuterol (Xopenex 1.25MG/ 0.5ML Neb) 1.25 mg Q4R INH 08/02/17 00:00 09/01/17 00:00 08/05/17 07:06 1.25 MG Levofloxacin (Levaquin Tab) 750 mg DAILY@11 PO 08/04/17 11:00 08/05/17 10:59 08/04/17 11:50 750 MG Vital Signs: Date Time Temp Pulse Resp B/P (MAP) Pulse Ox O2 Delivery O2 Flow Rate FiO2 08/05/17 08:00 94 High Flow Oxygen 50.0 50 08/05/17 07:30 36.7 63 20 153/81 (105) 94 08/05/17 07:06 77 20 95 Nasal Cannula 50.0 50 08/05/17 04:05 74 20 94 Nasal Cannula 50.0 50 08/05/17 04:00 High Flow Oxygen 50.0 50 08/05/17 03:54 37.0 81 18 143/89 (107) 95 High Flow Oxygen 50.0 50 08/04/17 23:59 High Flow Oxygen 50.0 50 08/04/17 23:23 104 18 96 Nasal Cannula 50.0 50 08/04/17 23:19 36.9 75 28 137/67 (90) 94 High Flow Oxygen 50.0 50 08/04/17 20:00 95 High Flow Oxygen 50.0 50 08/04/17 19:32 37.0 102 24 136/90 (105) 93 High Flow Oxygen 08/04/17 19:10 100 18 96 Nasal Cannula 50.0 50 08/04/17 16:00 95 High Flow Oxygen 50.0 50 08/04/17 15:29 36.8 103 24 135/96 (109) 92 High Flow Oxygen 08/04/17 15:13 76 18 96 Nasal Cannula 50.0 51 08/04/17 12:00 95 High Flow Oxygen 50.0 65 08/04/17 11:22 36.8 83 20 136/77 (96) 92 High Flow Oxygen 08/04/17 11:22 73 18 95 Nasal Cannula 50.0 48
--- NOTE | 2017-08-05 10:29 | Hospitalist Progress Note ---
Hospitalist Progress Note Date of Service Aug 05, 2017. Subjective Pt evaluation today including: conversation w/ patient, physical exam, chart review, lab review, review of inpatient medication list Voiding: no voiding problems Mr. Garcia reports feeling that he is breathing about the same today as he was yesterday. He is not coughing much but does feel somewhat short of breath Constitutional: No fever, No chills Respiratory: No cough, No sputum Cardiovascular: No chest pain, No palpitations Abdomen: No pain, No nausea, No vomiting, No diarrhea, No constipation Male : No dysuria All Other Systems: Reviewed and Negative Medications Medications Administered Medications (Trade) Dose Ordered Sig/Jodee Route Start Time Stop Time Status Last Admin Dose Admin Methylprednisolone Sodium Succinate 40 mg/Syringe 0.64 ml @ 1.5 mls/min Q8H IV 08/01/17 16:00 08/05/17 09:39 DC 08/05/17 07:44 1.5 MLS/MIN Albuterol/ Ipratropium (Duoneb) 3 ml QIDR INH 08/01/17 16:00 08/01/17 21:19 DC 08/01/17 19:13 3 ML Levofloxacin 750 mg/Prmx 150 ml @ 100 mls/hr Q24H IV 08/01/17 17:00 08/04/17 09:15 DC 08/03/17 17:26 100 MLS/HR Enoxaparin Sodium (Lovenox Inj) 40 mg QAM SQ 08/02/17 09:00 09/01/17 08:59 08/04/17 08:34 40 MG Magnesium Sulfate 1 gm/Prmx 100 ml @ 100 mls/hr Q1H IV 08/01/17 21:15 08/01/17 23:14 DC 08/01/17 22:38 100 MLS/HR Ipratropium [place] (Atrovent 0.02% 0.5MG/2.5ML Neb) 0.5 mg Q4R INH 08/02/17 00:00 09/01/17 00:00 08/05/17 07:06 0.5 MG Levalbuterol (Xopenex 1.25MG/ 0.5ML Neb) 1.25 mg Q4R INH 08/02/17 00:00 09/01/17 00:00 08/05/17 07:06 1.25 MG Levofloxacin (Levaquin Tab) 750 mg DAILY@11 PO 08/04/17 11:00 08/05/17 10:59 08/04/17 11:50 750 MG Objective Vital Signs Date Time Temp Pulse Resp B/P (MAP) Pulse Ox O2 Delivery O2 Flow Rate FiO2 08/05/17 08:00 94 High Flow Oxygen 50.0 50 08/05/17 07:30 36.7 63 20 153/81 (105) 94 08/05/17 07:06 77 20 95 Nasal Cannula 50.0 50 08/05/17 04:05 74 20 94 Nasal Cannula 50.0 50 08/05/17 04:00 High Flow Oxygen 50.0 50 08/05/17 03:54 37.0 81 18 143/89 (107) 95 High Flow Oxygen 50.0 50 08/04/17 23:59 High Flow Oxygen 50.0 50 08/04/17 23:23 104 18 96 Nasal Cannula 50.0 50 08/04/17 23:19 36.9 75 28 137/67 (90) 94 High Flow Oxygen 50.0 50 08/04/17 20:00 95 High Flow Oxygen 50.0 50 08/04/17 19:32 37.0 102 24 136/90 (105) 93 High Flow Oxygen 08/04/17 19:10 100 18 96 Nasal Cannula 50.0 50 08/04/17 16:00 95 High Flow Oxygen 50.0 50 08/04/17 15:29 36.8 103 24 135/96 (109) 92 High Flow Oxygen 08/04/17 15:13 76 18 96 Nasal Cannula 50.0 51 08/04/17 12:00 95 High Flow Oxygen 50.0 65 08/04/17 11:22 36.8 83 20 136/77 (96) 92 High Flow Oxygen 08/04/17 11:22 73 18 95 Nasal Cannula 50.0 48 Physical Exam Notes: General: no distress Eyes: normal inspection, PERLL Respiratory: chest non tender, diminished with expiratory wheezes bilateral bases and right mid lung, tachypneic with sharp inhale and then longer exhale, no respiratory distress, no accessory muscle use Cardiac: regular rate and rhythm, no rub or gallop, no murmur, no edema, no jvd GI/: active bowel sounds, no abd pain or tenderness, soft, non distended Extremities: normal range of motion, normal strength, non tender Neuro/Psych: alert and oriented x 3, normal mood and affect Skin: normal color, dry Assessment and Plan 22 yo male with acute asthma exacerbation, hypoxia - Acute hypoxic respiratory failure secondary to acute asthma exacerbation mild improvement today, no accessory muscle use, no distress, uneasy respiratory pattern with sharp intake and long exhale NC reduced to 50% FiO2 still with wheezing, diminished air movement to auscultation treat with Solu Medrol, nebulizers, Levaquin Appreciate input from pulmonary PT - Tachycardia: intermittent, due to stress and nebulizers remain on telemetry due to high flow oxygen requirement Resuscitation full code DVT prophylaxis - enoxaparin
[2017-08-06] VITALS (12 sets, daily range): BP systolic 125–146; BP diastolic 63–75; PULSE 63–104; TEMP 36.5–37; O2SAT 90–95
[2017-08-06] MEDS: IPRATROPIUM BROMIDE NEB SOLN 0.02% 2.5 ML VIAL INH SCH ×6 (04:02→23:12)
[2017-08-06] MEDS: LEVALBUTEROL 1.25MG/0.5ML NEB INH SCH ×6 (04:02→23:14)
[2017-08-06] MEDS: METHYLPREDNISOLONE IV 40 MG in SYRINGE 0 ML IV SCH ×2 (08:25→21:31)
[2017-08-06] MEDS: ENOXAPARIN 40 MG/0.4 ML SYR SQ SCH (08:25)
--- NOTE | 2017-08-06 08:40 | PULMONARY PROGRESS NOTE ---
DATE: 08/06/2017 DATE: 08/06/2017 TIME: 8:10 a.m. SUBJECTIVE: The patient states he is feeling better. He is less short of breath. He states he is coughing up mucus which is oropeza and thick. His appetite is improving. He states he had no difficulty getting up to go to the commode. The patient did indicate that he has never had any respiratory problems prior to 2 weeks ago. OBJECTIVE: GENERAL: The patient appears in no distress at rest. VITAL SIGNS: Temperature is 36.5. He has not had any significant temperatures. He still has the high flow nasal oxygen in place. Currently it is set at 40%. Heart rate was 84 per minute. The rhythm is regular. Blood pressure 137/68. Respiratory rate 20. CHEST: Auscultation reveals inspiratory and expiratory coarse rhonchi and wheeze. He is aerating significantly better than when I examined him 2 days ago. Current saturation is 95%. ABDOMEN: Soft and nontender. EXTREMITIES: Showed no cyanosis, clubbing or edema. LABORATORY DATA: There are no lab studies from today. IMPRESSIONS: 1. Acute respiratory failure with hypoxia. 2. Presumed status asthmaticus. COMMENTS AND RECOMMENDATIONS: The patient is gradually improving. It is still quite remarkable how much he has been shunting. His FIO2 is down compared with prior. His echo that was done a few days ago was not significantly abnormal. The patient is currently on methylprednisolone 40 mg IV b.i.d. I would not decrease that yet. He is still on the nebulizer treatments with levalbuterol and ipratropium every 4 hours. I would continue those as well. I would try to taper the FIO2 down. Once the high flow nasal gets down to about 30% he may be able to switch to nasal cannula and see how he does with that. I would encourage the patient to be getting out of bed more than what he is currently doing.
--- NOTE | 2017-08-06 11:22 | Progress Note ---
Subjective Date of Service: Aug 06, 2017. Subjective Pt evaluation today including: conversation w/ patient, physical exam, lab review, conversation w/ business objects consultant, review of inpatient medication list Pain: no pain PO Intake: adequate Voiding: no voiding problems breathing continues to improve, although very slowly ambulating more than yesterday FiO2 down to 40% Review of Systems Respiratory: + cough, + shortness of breath, + dyspnea on exertion All Other Systems: Reviewed and Negative Medications Current Inpatient Medications Medications (Trade) Dose Ordered Sig/Jodee Route Start Time Stop Time Status Last Admin Dose Admin Acetaminophen (Tylenol Tab) 650 mg Q4H PRN PO 08/01/17 13:15 08/31/17 13:14 Al Hydrox/Mg Hydrox/Simethicone (Maalox Max Susp) 15 ml Q4H PRN PO 08/01/17 13:15 08/31/17 13:14 Magnesium Hydroxide (Milk Of Magnesia Susp) 30 ml Q12H PRN PO 08/01/17 13:15 08/31/17 13:14 Ondansetron HCl (Zofran Inj) 4 mg Q6H PRN IV 08/01/17 13:15 08/31/17 13:14 Polyethylene (Miralax Powder Packet) 17 gm DAILY PRN PO 08/01/17 13:15 08/31/17 13:14 Enoxaparin Sodium (Lovenox Inj) 40 mg QAM SQ 08/02/17 09:00 09/01/17 08:59 08/04/17 08:34 40 MG Levalbuterol (Xopenex 1.25MG/ 0.5ML Neb) 1.25 mg Q2R PRN INH 08/01/17 21:15 08/31/17 21:14 Ipratropium [place] (Atrovent 0.02% 0.5MG/2.5ML Neb) 0.5 mg Q4R INH 08/02/17 00:00 09/01/17 00:00 08/06/17 11:10 0.5 MG Levalbuterol (Xopenex 1.25MG/ 0.5ML Neb) 1.25 mg Q4R INH 08/02/17 00:00 09/01/17 00:00 08/06/17 11:10 1.25 MG Methylprednisolone Sodium Succinate 40 mg/Syringe 0.64 ml @ 1.5 mls/min BID IV 10/20/17 21:00 08/07/17 15:59 08/06/17 08:25 1.5 MLS/MIN Objective Vital Signs Date Time Temp Pulse Resp B/P (MAP) Pulse Ox O2 Delivery O2 Flow Rate FiO2 08/06/17 11:10 101 18 90 Nasal Cannula 45.0 40 08/06/17 11:08 37.0 90 20 130/72 (91) 91 High Flow Oxygen 40.0 08/06/17 08:00 High Flow Oxygen 40.0 40 08/06/17 07:58 36.5 69 20 137/68 (91) 95 High Flow Oxygen 40 Nasal Cannula 08/06/17 07:04 87 18 91 Nasal Cannula 45.0 40 08/06/17 04:03 89 20 93 Nasal Cannula 45.0 40 08/06/17 04:00 High Flow Oxygen 45.0 40 08/06/17 03:26 36.7 63 20 125/63 (83) 95 High Flow Oxygen 40 Humidified Oxygen 08/06/17 00:00 High Flow Oxygen 45.0 40 08/05/17 23:44 36.8 73 26 126/76 (93) 96 High Flow Oxygen 40 Humidified Oxygen 08/05/17 23:16 93 18 92 Nasal Cannula 45.0 40 08/05/17 20:00 High Flow Oxygen 45.0 40 08/05/17 19:20 37.0 93 20 126/94 (105) 92 High Flow Oxygen 08/05/17 19:01 94 22 92 Nasal Cannula 45.0 40 08/05/17 16:00 95 High Flow Oxygen 40.0 40 08/05/17 15:23 37.0 104 20 144/68 (93) 40 High Flow Oxygen 40.0 93 08/05/17 14:58 99 16 92 Nasal Cannula 50.0 40 08/05/17 12:00 99 High Flow Oxygen 50.0 40 08/05/17 11:37 36.6 90 19 142/86 (104) 91 50.0 08/05/17 11:15 88 16 96 Nasal Cannula 50.0 50 Physical Exam General Appearance: WD/WN, no apparent distress Neck: supple, no adenopathy, no JVD, trachea midline Respiratory/Chest: chest non-tender, normal breath sounds, no respiratory distress, no accessory muscle use, + wheezing (end expiratory, no inspiratory wheezing) Cardiovascular: regular rate, rhythm, no edema, no gallop, no JVD, no murmur Abdomen: normal bowel sounds, non tender, soft, no organomegaly Extremities: normal range of motion, non-tender, normal inspection, no pedal edema, no calf tenderness Neurologic/Psychiatric: enginehouse brakeman II-XII nml as tested, no motor/sensory deficits, alert, normal mood/affect, oriented x 3 Skin: normal color, warm/dry, no rash Assessment and Plan 22 yo male with acute asthma exacerbation - Acute hypoxic respiratory failure secondary to acute asthma exacerbation continues to slowly improve, no accessory muscle use, no distress continue Solu Medrol at BID FiO2 down to 40%, once down to 30% can change to nasal canula minimal expiratory wheezing today nebulizers, Levaquin for 5 days total Continued [facility] stay due to: multiple IV medications needed Discharge planning: home
[2017-08-07] VITALS (13 sets, daily range): BP systolic 134–147; BP diastolic 78–84; PULSE 64–102; TEMP 36.3–36.7; O2SAT 92–98
[2017-08-07 00:15] LABS: URCREATININE 135.9 MG/DL (>/= 20)
[2017-08-07] MEDS: IPRATROPIUM BROMIDE NEB SOLN 0.02% 2.5 ML VIAL INH SCH ×6 (03:56→23:00)
[2017-08-07] MEDS: LEVALBUTEROL 1.25MG/0.5ML NEB INH SCH ×6 (03:56→22:59)
[2017-08-07 06:07] LABS: HEMATOCRIT 47.4 % (42-52); MEAN CELL VOLUME 89.4 fL (80-100); MEAN CORPUSCULAR HEMOGLOBIN 31.9 pg (25-34); MEAN CORPUSCULAR HGB CONC 35.7 g/dl (32-36); MEAN PLATELET VOLUME 9.2 fL (7.4-10.4); PLATELET COUNT 302 K/uL (130-400); WHITE BLOOD COUNT 16.35 K/uL (4.8-10.8)
[2017-08-07 06:40] LABS: CREATININE 0.95 mg/dl (0.60-1.40)
[2017-08-07] MEDS: ENOXAPARIN 40 MG/0.4 ML SYR SQ SCH (07:39)
[2017-08-07] MEDS: METHYLPREDNISOLONE IV 40 MG in SYRINGE 0 ML IV SCH (07:41)
--- NOTE | 2017-08-07 09:34 | Progress Note ---
Subjective Date of Service: Aug 07, 2017. Subjective Pt evaluation today including: conversation w/ patient, physical exam, lab review, review of inpatient medication list Pain: no pain PO Intake: adequate Voiding: no voiding problems patient feels like breathing continues to slowly improve, coughing less, less sputum production still with wheezing eating well, moving bowels, no difficulty urinating discussed with RN, will move to medical floor FiO2 at 35%, try to titrate to nasal canula later today Review of Systems Constitutional: + weakness, + fatigue Respiratory: + cough, + dyspnea on exertion All Other Systems: Reviewed and Negative Medications Current Inpatient Medications Medications (Trade) Dose Ordered Sig/Jodee Route Start Time Stop Time Status Last Admin Dose Admin Acetaminophen (Tylenol Tab) 650 mg Q4H PRN PO 08/01/17 13:15 08/31/17 13:14 Al Hydrox/Mg Hydrox/Simethicone (Maalox Max Susp) 15 ml Q4H PRN PO 08/01/17 13:15 08/31/17 13:14 Magnesium Hydroxide (Milk Of Magnesia Susp) 30 ml Q12H PRN PO 08/01/17 13:15 08/31/17 13:14 Ondansetron HCl (Zofran Inj) 4 mg Q6H PRN IV 08/01/17 13:15 08/31/17 13:14 Polyethylene (Miralax Powder Packet) 17 gm DAILY PRN PO 08/01/17 13:15 08/31/17 13:14 Enoxaparin Sodium (Lovenox Inj) 40 mg QAM SQ 08/02/17 09:00 09/01/17 08:59 08/04/17 08:34 40 MG Levalbuterol (Xopenex 1.25MG/ 0.5ML Neb) 1.25 mg Q2R PRN INH 08/01/17 21:15 08/31/17 21:14 Ipratropium Stringer (Atrovent 0.02% 0.5MG/2.5ML Neb) 0.5 mg Q4R INH 08/02/17 00:00 09/01/17 00:00 08/07/17 07:01 0.5 MG Levalbuterol (Xopenex 1.25MG/ 0.5ML Neb) 1.25 mg Q4R INH 08/02/17 00:00 09/01/17 00:00 08/07/17 07:01 1.25 MG Methylprednisolone Sodium Succinate 40 mg/Syringe 0.64 ml @ 1.5 mls/min BID IV 08/05/17 21:00 08/07/17 15:59 08/07/17 07:41 1.5 MLS/MIN Objective Vital Signs Date Time Temp Pulse Resp B/P (MAP) Pulse Ox O2 Delivery O2 Flow Rate FiO2 08/07/17 08:00 94 High Flow Oxygen 45.0 35 08/07/17 07:36 36.5 82 18 147/78 (101) 94 High Flow Oxygen 08/07/17 07:01 64 18 93 Nasal Cannula 45.0 35 08/07/17 04:22 36.7 73 20 144/82 (102) 92 High Flow Oxygen 08/07/17 04:00 High Flow Oxygen 40 08/07/17 03:57 72 18 93 Nasal Cannula 45.0 35 08/07/17 00:00 High Flow Oxygen 40 08/06/17 23:46 36.9 73 24 146/74 (98) 92 High Flow Oxygen 40 08/06/17 23:14 100 18 93 Nasal Cannula 45.0 35 08/06/17 20:00 High Flow Oxygen 40 08/06/17 19:54 36.6 89 22 143/75 (97) 92 High Flow Oxygen 08/06/17 19:11 91 20 92 Nasal Cannula 45.0 40 08/06/17 16:00 High Flow Oxygen 40.0 40 08/06/17 15:34 36.6 99 20 127/74 (91) 92 High Flow Oxygen 08/06/17 15:14 104 18 92 Nasal Cannula 45.0 40 08/06/17 12:00 High Flow Oxygen 40.0 40 08/06/17 11:10 101 18 90 Nasal Cannula 45.0 40 08/06/17 11:08 37.0 90 20 130/72 (91) 91 High Flow Oxygen 40.0 Physical Exam General Appearance: WD/WN, no apparent distress Eyes: normal inspection, EOMI, sclerae normal ENT: normal ENT inspection, hearing grossly normal, pharynx normal Neck: supple, no adenopathy, no JVD, trachea midline Respiratory/Chest: chest non-tender, no respiratory distress, no accessory muscle use, + wheezing (expiratory) Cardiovascular: regular rate, rhythm, no edema, no gallop, no JVD, no murmur Abdomen: normal bowel sounds, non tender, soft, no organomegaly Extremities: normal range of motion, non-tender, normal inspection, no pedal edema, no calf tenderness Neurologic/Psychiatric: asphalt smoother II-XII nml as tested, no motor/sensory deficits, alert, normal mood/affect, oriented x 3 Skin: normal color, warm/dry, no rash Lymphatic: no adenopathy Laboratory Results Last 24 Hours Test 08/07/17 05:39 White Blood Count 16.35 K/uL Red Blood Count 5.30 M/uL Hemoglobin 16.9 g/dL Hematocrit 47.4 % Mean Corpuscular Volume 89.4 fL Mean Corpuscular Hemoglobin 31.9 pg Mean Corpuscular Hemoglobin Concent 35.7 g/dl RDW Standard Deviation 42.1 fL RDW Coefficient of Variation 12.8 % Platelet Count 302 K/uL Mean Platelet Volume 9.2 fL Creatinine 0.95 mg/dl Est Creatinine Clear Calc Drug Dose 136.2 ml/min Estimated GFR () 133.0 Estimated GFR (Non- 114.8 Assessment and Plan 22 yo male with acute asthma exacerbation - Acute hypoxic respiratory failure secondary to acute asthma exacerbation mild improvement since yesterday, still no accessory muscle use, no distress continue Solu Medrol at BID, timing of taper will be deferred to pulmonology FiO2 down to 35%, once down to 30% can change to nasal canula minimal expiratory wheezing today nebulizers completed 5 days of Levaquin transfer to medical floor continue to encourage ambulation Continued [facility] stay due to: multiple IV medications needed Discharge planning: home
--- NOTE | 2017-08-07 15:40 | PULMONARY PROGRESS NOTE ---
DATE: 08/07/2017 The patient evaluation today included: Conversation with the patient, physical exam, lab review, and review of inpatient medication list. SUBJECTIVE: The patient was just transferred up from and was sitting by the side of his bed with his family in attendance. He is exhibiting no signs of respiratory stress. He has been weaning down with oxygen at 3 liters with adequate saturation. He wishes to go home and the family were pressing me to have him discharged. He was rounded on earlier today by Dr. Goran Hernandez. He denies feeling breathless. He is producing only minimal amount of sputum and denies pleuritic pain. He is afebrile. PHYSICAL EXAMINATION: CURRENT VITAL SIGNS: Temperature 36.5, pulse 82 and regular, respiratory rate 18, blood pressure 147/78, O2 sat 94% on 3 liters. SKIN: Warm and dry. HEENT: Atraumatic, normocephalic, PERRLA, EOMI. Conjunctivae pink. Sclerae nonicteric. Fundi benign. Tympanic membranes within normal limits. Pharyngeal exam intact. Neck veins are not distended at 45 degrees. No lymphadenopathy in the supra or infraclavicular areas. LUNGS: Distant P&A with some scattered wheezes at the right base. CARDIAC: Regular rhythm. No murmurs or gallops. PMI nondisplaced. ABDOMEN: Soft, scaphoid. No evidence of hepatosplenomegaly. EXTREMITIES: No pedal edema, clubbing, cyanosis. NEUROLOGIC: Intact. No lateralizing signs. LABORATORY DATA: Chest CT on 08/03 was reviewed and there was evidence of bronchial wall thickening with secretions and scattered subsegmental mosaic attenuation and ground-glass opacities, suggesting some degree of air trapping. No pathologic adenopathy, Legionella antibodies and urine for Legionella antigen none detected. Mycoplasma IgM was low, antibodies were low. Influenza A and B were negative and antibodies of influenza A and B were negative. OVERALL ASSESSMENT: [id number] with asthma with severe exacerbation and presented in respiratory distress, markedly improved to the point where he is clamoring as his family is for discharge. Although he is still somewhat bronchospastic, I think he could be safely discharged on oral prednisone and antibiotics with followup in our clinic within a week's time. We will discuss that with Dr. Goran Hernandez. [facility] CENTERGetachew
[2017-08-08] MEDS: IPRATROPIUM BROMIDE NEB SOLN 0.02% 2.5 ML VIAL INH SCH ×3 (04:04→11:19)
[2017-08-08] MEDS: LEVALBUTEROL 1.25MG/0.5ML NEB INH SCH ×3 (04:04→11:19)
[2017-08-08 04:07] VITALS: PULSE 76; O2SAT 98
[2017-08-08 07:13] VITALS: PULSE 81; O2SAT 98
[2017-08-08 07:46] VITALS: BP 126/75; PULSE 76; TEMP 36.7; O2SAT 95
[2017-08-08] MEDS: ENOXAPARIN 40 MG/0.4 ML SYR SQ SCH (07:52)
[2017-08-08 09:41] VITALS: BP 126/75; PULSE 76; TEMP 36.7; O2SAT 95
[2017-08-08 11:19] VITALS: PULSE 84; O2SAT 98
[2017-08-08] MEDS ORDERED: ATRINS INH (11:25)
[2017-08-08] MEDS ORDERED: XPNINS1255 INH (11:25)
[2017-08-08] MEDS ORDERED: LEVA45AE INH (11:36)
[2017-08-08] MEDS ORDERED: PRED10TA PO (11:36)
[2017-08-08] MEDS ORDERED: QVRINH80 INH (11:36)
--- NOTE | 2017-08-08 11:47 | Discharge Instructions ---
Discharge Instructions Date of Service Aug 08, 2017. Admission Reason for Admission: Acute Respiratory Failure With Hypoxia Discharge Discharge Diagnosis / Problem: Acute respiratory failure with hypoxia, acute asthma exacerbation Discharge Goals Goal(s): Decrease discomfort, Improve function, Diagnostic testing, Therapeutic intervention Activity Recommendations Activity Limitations: resume your previous activity (as tolerated) . Instructions / Follow-Up Instructions / Follow-Up You were transferred to [facility] after developing acute respiratory failure and hypoxia while at [facility]. Your respiratory failure was caused by a severe acute asthma exacerbation. You were treated with IV steroids and nebulizer breathing treatments, as well as a course of antibiotics. Pulmonology was consulted. You will be discharged with inhalers for both maintenance therapy and rescue therapy and will require close follow up with pulmonology. Medications: *Please take Qvar 1 puff inhaled twice a day. This an inhaled corticosteroid for maintenance therapy of your asthma. Make sure to rinse your mouth after using this medication to prevent thrush. *You may use a levalbuterol (Xopenex) inhaler 2 puffs every 4-6 hours as needed for shortness of breath and/or wheezing. *You will continue a prednisone taper on discharge. This is an oral steroid. Please take as directed: -20 mg (2 tabs) by mouth twice a day for 2 days, then -20 mg (2 tabs) by mouth once a day for 3 days, then -10 mg (1 tab) by mouth once a day for 3 days, then stop. Recommendations: *Please take your peak flow home and do once a day or when your symptoms become worse. This will help to establish a baseline once your acute exacerbation has resolved. Follow up: *You will be scheduled to follow up with your primary care provider and pulmonology in 1 week following discharge. *It is recommended that you have pulmonary function tests done as an outpatient with pulmonology. Please seek medical attention if you experience fevers, chills, sweats, dizziness/lightheadedness, loss of consciousness, chest pain, worsening shortness of breath/wheezing, nausea, vomiting, numbness or tingling. Current Hospital Diet Patient's current hospital diet: Regular Diet Discharge Diet Recommended Diet: Regular Diet Pending Studies Studies pending at discharge: no Medical Emergencies . Who to Call and When: Medical Emergencies: If at any time you feel your situation is an emergency, please call 911 immediately. . Non-Emergent Contact Non-Emergency issues call your: Primary Care Provider, Senior Mobile Application Developer Call Non-Emergent contact if: you have a fever, you have any medication questions . Past History Medical & Surgical History: (1) Acute respiratory failure with hypoxia . "Provider Documentation" section prepared by Rosaline Nichols. . VTE Core Measure Inpt VTE Proph given/why not?: Enoxaparin (Lovenox)SQ
--- NOTE | 2017-08-08 11:47 | Pulmonology Progress Note ---
Pulmonary Progress Note Date of Service Aug 08, 2017. Attending Dr. Fierro Subjective Patient seen and examined at bedside. He states that he is feeling better. He denies any shortness of breath, cough, chest pain or wheezing. Objective VS reviewed. General: Patient is awake, alert, and in no acute distress. Well developed. Well-nourished. Head: Normocephalic, Atraumatic. ENT: PERRLA, No discharge, EOMI, Sclera normal Neck: Normal ROM. Trachea midline. No stridor Respiratory:CTA bilaterally, speaking in full sentences, no tachypnea Cardiovascular: Regular rate and rhythm. No murmur appreciate. Normal S1/S2. Abdomen: Normal bowel sounds hear throughout. No guarding. Abdomen is soft and nontender Extremities: No edema, cyanosis. Neuro: Alert. CN II-XII grossly intact. Sensation and motor function grossly intact. Psych: Mood and affect are flat Assessment & Plan IMPRESSION: Mild intermittent asthma with exacerbation Possible lower respiratory tract infection Patient appears to have improved from a respiratory standpoint. He can be discharged on ICS, QVAR 80 mcg 1 puff BID and xopenex2 puffs q4-6hr prn. Recommend daily peak flow monitoring. Continue steroid taper. I will sign off case for now. Please contact me if you have any further questions or concerns. He should follow with [facility] pulmonary [facility] as an outpatient within a week of discharge. Data Medications: Current Inpatient Medications Medications (Trade) Dose Ordered Sig/Jodee Route Start Time Stop Time Status Last Admin Dose Admin Acetaminophen (Tylenol Tab) 650 mg Q4H PRN PO 08/01/17 13:15 08/31/17 13:14 Al Hydrox/Mg Hydrox/Simethicone (Maalox Max Susp) 15 ml Q4H PRN PO 08/01/17 13:15 08/31/17 13:14 Magnesium Hydroxide (Milk Of Magnesia Susp) 30 ml Q12H PRN PO 08/01/17 13:15 08/31/17 13:14 Ondansetron HCl (Zofran Inj) 4 mg Q6H PRN IV 08/01/17 13:15 08/31/17 13:14 Polyethylene (Miralax Powder Packet) 17 gm DAILY PRN PO 08/01/17 13:15 08/31/17 13:14 Enoxaparin Sodium (Lovenox Inj) 40 mg QAM SQ 08/02/17 09:00 09/01/17 08:59 08/04/17 08:34 40 MG Levalbuterol (Xopenex 1.25MG/ 0.5ML Neb) 1.25 mg Q2R PRN INH 08/01/17 21:15 08/31/17 21:14 Ipratropium Edon (Atrovent 0.02% 0.5MG/2.5ML Neb) 0.5 mg Q4R INH 08/02/17 00:00 09/01/17 00:00 08/08/17 11:19 0.5 MG Levalbuterol (Xopenex 1.25MG/ 0.5ML Neb) 1.25 mg Q4R INH 08/02/17 00:00 09/01/17 00:00 08/08/17 11:19 1.25 MG Prednisone (PredniSONE TAB) 20 mg BID PO 08/07/17 20:00 09/06/17 19:59 08/08/17 07:55 20 MG Vital Signs: Date Time Temp Pulse Resp B/P (MAP) Pulse Ox O2 Delivery O2 Flow Rate FiO2 08/08/17 11:19 84 16 98 Room Air 08/08/17 09:41 36.7 76 20 95 Mask 08/08/17 08:00 Room Air 08/08/17 07:46 36.7 76 20 126/75 (92) 95 Room Air 08/08/17 07:13 81 16 98 Room Air 08/08/17 04:07 76 18 98 Nasal Cannula 1.0 08/08/17 00:00 Nasal Cannula 1.0 08/07/17 23:42 36.6 88 20 134/79 (97) 96 2.0 08/07/17 23:20 77 18 97 Nasal Cannula 1.0 08/07/17 19:08 81 18 98 Nasal Cannula 2.0 08/07/17 16:00 Nasal Cannula 2.0 08/07/17 15:33 36.5 102 16 138/81 (100) 96 08/07/17 14:59 101 18 94 Nasal Cannula 2.0
--- NOTE | 2017-08-08 15:08 | Discharge Summary ---
Discharge Summary Date of Service Aug 08, 2017. Discharge Summary Admission Date: Aug 01, 2017 at 13:17 Discharge Date: Aug 08, 2017 Discharge Disposition: Home Principal Diagnosis: Acute respiratory failure with hypoxia, acute asthma exacerbation Consultations: Pulmonology Medication Reconciliation New Medications: Beclomethasone Dip (Qvar) 80 Mcg/Act Aer 1 PUFF INH BID for 30 Days, #60 PUFF Levalbuterol Tartrate (Levalbuterol Tartrate Hfa) 45 Mcg/Act Aer 2 PUFFS INH UD PRN for SOB/Wheezing for 30 Days, #360 PUFF Every 4 to 6 hours as needed for shortness of breath or wheezing. Prednisone Tab (Prednisone) 10 Mg Tab 10 MG PO UD for 8 Days, #17 TAB Days 1-2: 20 mg (2 tab) twice a day Days 3-5: 20 mg (2 tab) once a day Days 6-8: 10 mg (1 tab) once a day Discharge Exam The patient reports feeling better. He does complain of a productive cough but denies any shortness of breath or wheezing. He denies any other complaints. The patient denies fevers, chills, sweats, chest pain, palpitations, claudication, wheezing, shortness of breath, nausea, vomiting, abdominal pain, dysuria, hematuria, urinary retention, paralysis, weakness, numbness and tingling. Review of Systems: Constitutional: No fever, No chills, No sweats Eyes: No worsening of vision, No eye pain, No diplopia ENT: No hearing loss, No sore throat, No trouble swallowing Respiratory: + cough, + sputum, No wheezing, No shortness of breath Cardiovascular: No chest pain, No claudication, No palpitations Abdomen: No pain, No nausea, No vomiting Musculoskeletal: No joint pain, No muscle pain, No calf pain Genitourinary - Male: No hematuria, No dysuria, No urinary retention Neurologic: No paralysis, No weakness, No numbness/tingling Integumentary: No rash, No itch Physical Exam: General Appearance: WD/WN, no apparent distress Eyes: normal inspection, PERRL, EOMI ENT: normal ENT inspection, hearing grossly normal, pharynx normal Neck: supple, no JVD, trachea midline Respiratory/Chest: lungs clear, normal breath sounds, no respiratory distress Cardiovascular: regular rate, rhythm, no gallop, no murmur Abdomen / GI: normal bowel sounds, non tender, soft Extremities: normal inspection, no calf tenderness, no pedal edema Neurologic/Psychiatric: alert, oriented x 3, + pertinent finding (flat affect) Skin: normal color, warm/dry, no rash Hospital Course 22 y/o male with a history of mild intermittent asthma who presents with acute asthma exacerbation transferred from [facility] due to acute respiratory failure with hypoxia. Acute hypoxic respiratory failure secondary to acute asthma exacerbation-- improving -Previously only intermittent asthma, did not have any maintenance treatment -Treated with Xopenex/Atrovent nebs due to tachycardia and Solu-Medrol -Pt required high flow oxygen on arrival and then weaned down. On room air at discharge -2 step test done, no oxygen requirement at rest or with ambulation -Converted to Prednisone 20 mg PO BID on 08/07. D/C with steroid taper: 20 mg PO BID x 2 more days, then 20 mg PO qd x 3 days, then 10 mg PO qd x 3 days then stop -Pulmonology consulted, appreciate recs: Spoke with Dr. Fierro. Discharge on Qvar for maintenance therapy and rescue inhaler. Recommend daily peak flow and continue steroid taper. -D/C with Qvar 1 puff inh BID, Xopenex 2 puffs inh q4-6h prn SOB/wheezing -Peak flow -Completed 5 day course of Levaquin while inpatient -Will need outpt PFTs and close pulmonology follow up DVT prophylaxis -Enoxaparin 40 mg SC q24h -Encourage ambulation Code Status -Level I, FULL RESUSCITATION STATUS Dispo -Stable for d/c -F/u with PCP and pulm in 1 week Total Time Spent: Greater than 30 minutes This includes examination of the patient, discharge planning, medication reconciliation, and communication with other providers. Discharge Instructions Please refer to the electronic Patient Visit Report (Discharge Instructions) for additional information. Additional Copies To Angela Howard M.D.
== END 2017-08-08 12:44 | disposition home or self-care (01) | DRG 189 ==
LOC: C.2E 13:17 → UNDOADMIN 15:08 → ENRESERV 08-07 09:31 → C.MS4W 08-07 10:36
PROVIDERS: ADMIT Internal Medicine; ATTEND Hospitalist
DX: J96.01 Acute respiratory failure with hypoxia (principal); J45.22 Mild intermittent asthma with status asthmaticus; J22 Unspecified acute lower respiratory infection; Z51.81 Encounter for therapeutic drug level monitoring; Z83.3 Family history of diabetes mellitus

== ENCOUNTER → 2017-09-14 | Outpatient (CLI) | payer OTHER ==
[~2017-09-14] MED LIST: LEVA45AE INH; QVRINH80 INH
--- NOTE | 2017-09-14 10:30 | DIAGNOSTIC IMAGING REPORT ---
SINUSES MIN 3 VIEWS ROUTINE CLINICAL HISTORY: 22 years-old Male presenting with J30.9 Allergic [id number]. TECHNIQUE: 4 views of the sinuses were obtained. COMPARISON: None. 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 Paranasal sinuses and mastoid air cells grossly clear. Bony nasal septum midline. Bony orbits normal. IMPRESSION: Paranasal sinuses and mastoid air cells grossly clear. Electronically signed by: Angel Webb M.D. 09/14/2017 10:28 AM Dictated Date/Time: 09/14/2017 10:27 AM
== END | disposition home or self-care (01) ==
LOC: C.RAD1850 09:36
PROVIDERS: ATTEND Internal Medicine Pulmonary Disease
DX: J30.9 Allergic rhinitis, unspecified (principal)

== ENCOUNTER → 2017-11-10 | Outpatient (CLI) | payer OTHER ==
[2017-11-10 14:39] LABS: HEMATOCRIT 43.8 % (42-52); HEMOGLOBIN 15.5 g/dL (14.0-18.0); MEAN CELL VOLUME 91.1 fL (80-100); MEAN CORPUSCULAR HEMOGLOBIN 32.2 pg (25-34); MEAN CORPUSCULAR HGB CONC 35.4 g/dl (32-36); MEAN PLATELET VOLUME 9.5 fL (7.4-10.4); PLATELET COUNT 276 K/uL (130-400); RED CELL DISTRIBUTION WIDTH SD 42.9 fL (36.4-46.3); WHITE BLOOD COUNT 6.15 K/uL (4.8-10.8)
== END | disposition home or self-care (01) ==
LOC: C.LAB1850 13:21
PROVIDERS: ATTEND Internal Medicine Pulmonary Disease
DX: J45.909 Unspecified asthma, uncomplicated (principal)